=== PATIENT | female | born 2000 | race African-American/Black ===

== ENCOUNTER 2024-07-24 11:33 | Emergency (ER) | payer OTHER, MEDICAID, SELFPAY ==
--- NOTE | ~2024-07-24 | US_ITS ---
EXAMINATION: US ABDOMEN LIMITED CLINICAL INFORMATION: Right upper quadrant abdominal pain. COMPARISON: None available. TECHNIQUE: Real-time imaging of the right upper quadrant abdominal viscera using grayscale and color Doppler technique. FINDINGS: PANCREAS: No peripancreatic fluid collections. LIVER: Liver demonstrates normal morphology and echotexture. No solid or cystic lesion. Liver doesn't have documented measurements by the pulmonary function technologist. No intrahepatic biliary ductal dilatation. GALLBLADDER: Fluid-filled. No pericholecystic fluid collection or gallbladder wall thickening. COMMON BILE DUCT: 3 mm. RIGHT KIDNEY: Normal morphology and echotexture. No solid or cystic lesion. No hydronephrosis. Normal flow on color Doppler interrogation of the renal hilum. Right kidney measures 9 cm. FREE FLUID: None. US/US abdomen limited IMPRESSION: No cholelithiasis. Normal exam. Electronically signed by: Jun Vaz MD 07/24/2024 01:05 PM [facility]
--- NOTE | 2024-07-24 11:35 | ED.ABDPAIN ---
HPI - Abdominal Pain General Chief Complaint: Abdominal Pain Stated Complaint: RUQ pain, sent from Time Seen by Provider: 07/24/24 12:40 Source: patient Mode of arrival: ambulatory Limitations: no limitations History of Present Illness ED Provider: Veronica Gibbons NP HPI narrative: Patient is a 24-year-old female presents emergency department for evaluation of right upper abdominal pain with onset 5 days ago. Pain has been constant in nature. Exacerbates with coughing and movement. Has associated nausea but no vomiting and is able to tolerate oral intake including Bautista's this afternoon without exacerbation of pain or vomiting. Has not tried any OTC analgesics for this pain. Does admit that about 1.5 weeks ago she was sick with a cold symptoms have resolved but she continues to have a mild lingering nonproductive cough. She admits to having infrequent episodes of diarrhea but states ?I think I have IBS?. No recent episodes of diarrhea over the past few days. Denies concern for constipation. Denies fevers, chills, chest pain, vomiting, hematemesis, diarrhea, constipation, hematochezia, melena, dysuria, frequency, urinary urgency, hesitancy, hematuria, denies pelvic pain or abnormal vaginal discharge. Denies concern for sexually transmitted infection. Denies concern for , LMP 07/16/2024. Related Data Allergies Allergy/AdvReac Type Severity Reaction Status Date / Time No Known Allergies Allergy Verified 07/24/24 11:40 Review of Systems Review of Systems Yes all other systems are reviewed and are negative PMFSH Past Medical History Attestation statement: The following information was validated with the patient. Source: old records reviewed Physical Exam ED Vital Signs: Vital Signs - 24 hr 07/24/24 11:36 Temperature 97.7 F Pulse Rate 60 Respiratory Rate 16 Blood Pressure 122/71 Pulse Oximetry 98 Oxygen Delivery Method Room Air BMI result Body Mass Index 18.7 Appearance: Alert.?Oriented to person, place and time. No acute distress.?Normal affect.?? Neck: Normal inspection.? Neck supple.?? CVS: Heart sounds normal. Normal heart rate and rhythm.? Pulses normal.?? Respiratory: No respiratory distress.? Lung sounds clear to auscultation bilaterally?? Chest: Has tenderness upon palpation of the right lower lateral chest wall Abdomen: Soft and non-tender. No rebound tenderness at McBurney's point. Negative psoas sign. Negative Rovsing sign. Negative Rosas sign. No CVAT. Normoactive bowel sounds. No pulsatile mass.?? Skin: Skin warm and dry.? Normal skin color.? Extremities: No lower extremity edema.? Neuro: Moves all extremities spontaneously. Sensation intact bilaterally. Ambulates with normal steady gait. Course Course Course Narrative: This is an RME done by DEVON Lawrence: Additional HPI, ROS, PE not included below will be deferred to primary provider. 24 year old female presents w/ RUQ pain 7/10, nausea, diarrhea X 5 days worsening. Pain worse with coughing, laughing, stretching. Unable to identify what makes pain worse. No fevers, chills, cp, sob, vomiting. Sent here by urgent care . Holding [employer] bag in hand ready to eat while in triage. PE RUQ tenderness mild US, labs ordered. Medical Decision Making Medical Decision Making MDM Narrative: Patient is a 24 old female with no reported past medical history presenting to emergency department for evaluation right upper quadrant abdominal pain as per HPI. Abdominal examination is benign tenderness upon palpation is rather the right lateral lower chest wall provoking concern for likely costochondritis in the setting of recent upper respiratory infection, overall without signs of systemic toxicity found to be afebrile without tachycardia, no hypotension. No associated chest pain shortness of breath, has had a recent URI with a mild lingering cough nonproductive, lung sounds are clear to the apices bilaterally, unlikely pneumonia, would defer CXR. no clinical evidence of DVT or personal history of VTE/malignancy to suggest pulmonary embolism, PERC negative. No high-risk past medical history to suggest myocardial infarction and is without chest pain, less likely AAA, aortic dissection. No abdominal tenderness upon palpation, negative Rosas sign, unlikely acute cholecystitis, choledocholithiasis, no fever or jaundice to suggest acute cholangitis, may possibly be biliary colic secondary to cholelithiasis. Denies associated acid reflux, no tenderness upon palpation over the epigastrium or left upper quadrant to suggest gastritis, no recent hematemesis history less likely to suggest PUD. Denies excessive alcohol consumption, history of diabetes, lower suspicion acute pancreatitis. No rebound tenderness at McBurney's point, rigidity, guarding to suggest acute appendicitis. No tenderness of the left lower quadrant nor associated nausea, vomiting, diarrhea patient, hematochezia or melena to suggest diverticulitis or GI bleed. No appreciable hernia to suggest strangulation/incarceration. Lower suspicion for bowel obstruction. No distention or rigidity to suggest GI perforation. hCG is negative, unlikely ectopic , lower clinical suspicion for TOA/torsion. Differential Diagnosis Differential Diagnoses: The differential diagnosis associated with the presentation includes (See narrative above) Admission/Observation Consideration of admission/observation: Escalation of care including admission/observation considered (See narrative above ) Lab Data MDM Lab Attestation statement: I reviewed the patient's lab results. CBC without leukocytosis/left shift, anemia or thrombocytopenia. No electrolyte derangement. No DULCE MARIA. LFTs and lipase are within normal range. Urinalysis without evidence of infection. 07/24/24 11:48 07/24/24 11:48 Labs: Lab Results 07/24/24 Range/Units 11:48 WBC 4.6 L (4.8-10.8) X10*3/uL RBC 4.65 (4.20-5.50) X10*6/uL Hgb 12.8 (12.0-16.0) g/dl Hct 40.1 (37.0-47.0) % MCV 86.2 (80.0-98.0) fL MCH 27.5 (27.0-33.0) pg MCHC 31.9 (31.0-35.0) g/dl RDW 13.5 (11.0-16.0) % Plt Count 300 (160-400) X10*3/uL MPV 9.2 L (9.4-12.3) fL Immature Gran % (Auto) 0.2 (0.0-0.4) % Neut % (Auto) 51.6 (45-73) % Lymph % (Auto) 37.3 (20-40) % [place] % (Auto) 9.9 (2-11) % Eos % (Auto) 0.4 (0-4) % Baso % (Auto) 0.6 (0-2) % Lymph # (Auto) 1.7 (1.2-4.9) X10*3/uL [place] # (Auto) 0.5 (0.1-1.2) X10*3/uL Eos # (Auto) 0.0 (0.0-0.4) X10*3/uL Baso # (Auto) 0.0 (0.0-0.2) X10*3/uL Abs Immat Gran (auto) 0.01 (0.00-0.03) X10*3/uL Absolute Neuts (auto) 2.4 (2.0-8.3) x10*3/uL Absolute Nucleated RBC 0.000 (0.0-0.012) X10*3/uL Nucleated RBC % (auto) 0.0 (0.0-0.2) /100WBC Sodium 137 (135-145) mmol/L Potassium 4.0 (3.3-5.1) mmol/L Chloride 103 (96-108) mmol/L Carbon Dioxide 28 (22-29) mmol/L Anion Gap 10 L (12-20) BUN 7 L (9-16) mg/dL Creatinine 0.85 (0.5-1.4) mg/dL Estim Creat Clear Calc 80.8 Estimated GFR > 60 Random Glucose 100 (60-115) mg/dL Calcium 9.2 (8.4-10.2) mg/dL Magnesium 1.9 (1.6-2.6) mg/dL Total Bilirubin 0.5 (0.0-1.0) mg/dL AST 24 (5-31) U/L ALT 15 (0-31) U/L Alkaline Phosphatase 65 (39-117) U/L Total Protein 8.4 H (6.5-8.0) g/dL Albumin 4.4 (3.5-5.0) g/dL Lipase 18 (8-78) U/L Urine Color Yellow Urine Appearance Clear Urine pH 5.5 (5.0-9.0) Ur Specific [place] <= 1.005 (1.005-1.025) Urine Protein Negative (Neg-Trace) mg/dL Urine Glucose (UA) Negative (Negative) mg/dL Urine Ketones Negative (Negative) mg/dL Urine Blood Negative (Negative) Urine Nitrite Negative (Negative) Ur Leukocyte Esterase Negative (Negative) Independent Interpretation I performed an independent interpretation of an: Ultrasound Radiology Impression Discussion of test interpretation with radiology: I have reviewed the radiologist's reading. Radiologist Impression: US/US abdomen limited IMPRESSION: No cholelithiasis. Normal exam. Discharge Plan Discharge Clinical Impression: Acute costochondritis Patient Disposition: Home, Self-Care Instructions: Costochondritis (ED) Additional Instructions: Your blood work today was very reassuring. Your ultrasound does not show any abnormality to suggest a cause for your pain. You can take ibuprofen 200 mg, 3 tablets (600mg) every 6-8 hours as needed for pain, in addition to Tylenol 500 mg, 2 tablets (1,000mg) every 4-6 hours as needed for pain, but not to exceed 3 doses daily (3,000mg).? Follow-up with your primary care doctor. Return to emergency department any new or worsening symptoms or concerns. Referrals: Physician,Unknown J [Primary Care Provider] - Print Language: Italian
[2024-07-24 11:36] VITALS: BP 122/71; PULSE 60; RESP 16; TEMP 36.5; O2SAT 98; BMI 18.7
[2024-07-24 11:55] LABS: Appearance Urine Clear; Color Urine Yellow; Glucose Urine UA Negative (Negative); Leukocyte Esterase Urine Negative (Negative); Nitrite Urine Negative (Negative); PH 5.5 (5.0-9.0); Specific Gravity - Urine <= 1.005 (1.005-1.025); Urine Blood Negative (Negative); Urine Ketones Negative (Negative); Urine Protein Negative (Neg-Trace)
[2024-07-24 11:56] LABS: Basophils Percent Auto 0.6 % (0-2); Eosinophils Percent Auto 0.4 % (0-4); Hematocrit 40.1 % (37.0-47.0); Hemoglobin 12.8 g/dl (12.0-16.0); Imm Gran Abs Auto 0.01 X10*3/uL (0.00-0.03); Imm Gran Pct Auto 0.2 % (0.0-0.4); Lymphocytes Absolute Auto 1.7 X10*3/uL (1.2-4.9); Lymphocytes Percent Auto 37.3 % (20-40); MANUAL DIFF FLAG NO; Mean Corpuscular HGB Conc 31.9 g/dl (31.0-35.0); Mean Corpuscular Hemoglobin 27.5 pg (27.0-33.0); Mean Corpuscular Volume 86.2 fL (80.0-98.0); Mean Platelet Volume 9.2 fL (9.4-12.3); Monocytes Absolute Auto 0.5 X10*3/uL (0.1-1.2); Monocytes Percent Auto 9.9 % (2-11); Neutrophils Absolute Auto 2.4 x10*3/uL (2.0-8.3); Neutrophils Percent Auto 51.6 % (45-73); Platelet Count 300 X10*3/uL (160-400); Red Blood Count 4.65 X10*6/uL (4.20-5.50); Red Cell Distribution Width 13.5 % (11.0-16.0); White Blood Count 4.6 X10*3/uL (4.8-10.8)
[2024-07-24 12:07] LABS: Alanine Aminotransferase 15 U/L (0-31); Albumin Level 4.4 g/dL (3.5-5.0); Alkaline Phosphatase 65 U/L (39-117); Anion Gap 10 (12-20); Aspartate Amino Transferase 24 U/L (5-31); Bilirubin Total 0.5 mg/dL (0.0-1.0); Blood Urea Nitrogen 7 mg/dL (9-16); Calcium 9.2 mg/dL (8.4-10.2); Carbon Dioxide 28 mmol/L (22-29); Chloride 103 mmol/L (96-108); Creatinine Clr Calc Pharmacy 80.8; Estimated Glomerular Filt Rate > 60; Glucose Random 100 mg/dL (60-115); Lipase 18 U/L (8-78); Magnesium 1.9 mg/dL (1.6-2.6); Sodium 137 mmol/L (135-145); Total Protein 8.4 g/dL (6.5-8.0)
[2024-07-24 13:25] LABS: HCG Quantitative < 2 mIU/mL
[2024-07-24 13:54] VITALS: BP 137/87; PULSE 82; RESP 16; TEMP 36.6; O2SAT 100
[2024-07-24] MEDS: Ibuprofen 600 MG TABLET PO (13:55)
[2024-07-24 14:02] VITALS: BP 137/87; PULSE 82; RESP 16; TEMP 36.6; O2SAT 100
== END 2024-07-24 14:05 | disposition home or self-care (01) ==
PROVIDERS: Nurse Practitioner Family; Physician Assistant; Emergency Provider Emergency Medicine
DX: M94.0 Chondrocostal junction syndrome [Tietze] (principal); R10.11 Right upper quadrant pain; R05.9 Cough, unspecified
CPT/HCPCS: 36415; 76705; 80053; 81003; 83690; 83735; 84702; 85025; 96372; 99283; 99284

== ENCOUNTER → 2024-07-24 11:34 | Outpatient (BNV) | payer OTHER, SELFPAY | PROVIDERS: Emergency Provider Emergency Medicine; Visit Provider Radiology Diagnostic Radiology | DX: R10.11 Right upper quadrant pain (principal) | CPT/HCPCS: 76705 ==

== ENCOUNTER 2024-12-15 09:54 | Emergency (ER) | payer OTHER, MEDICAID, SELFPAY ==
--- NOTE | ~2024-12-15 | XR_ITS ---
EXAMINATION: XR CHEST 2 VIEWS HISTORY: +PPD, rule out active TB COMPARISON: There are no prior studies for comparison. FINDINGS: PA and lateral views of the chest are submitted. There are opacities at the left lung apex which may represent artifacts related to the patient's hair. The remainder of the lungs are clear. There is no pleural effusion, pneumothorax, or pulmonary vascular congestion. The heart is normal in size. The bones are intact. XR/XR chest 2V IMPRESSION: Left apical opacities which may represent artifact from the patient's hair. Clinical correlation is recommended. The film could be repeated with removal of any artifacts. Electronically signed by: Allan Malone MD 12/15/2024 10:42 AM EDT
--- NOTE | ~2024-12-15 | CT_ITS ---
EXAMINATION: CT ANGIOGRAM CHEST CLINICAL INFORMATION: Hemoptysis. Possible TB exposure. COMPARISON: None available. TECHNIQUE: Multiple axial images were obtained through the chest after the administration of 65 mL of Omnipaque 350 intravenous contrast. Extensive vascular post-processing including two-dimensional and three-dimensional reformatted images were created and reviewed on an independent workstation. SmartPrep technique This CT examination was performed using dose optimization techniques as appropriate, variously including the following: *Automated exposure control *Adjustment of mA and/or kV according to patient size (this includes techniques or standardized protocols for targeted exams where dose is matched to indication/reason for exam; i.e. extremities or head) *Use of iterative reconstruction technique. DLP: 170 mg centimeter. FINDINGS: Normal patency without intraluminal filling defects within the main pulmonary artery or its main branches and largest subsegmental pulmonary branches. No aneurysm or dissection, thoracic aorta. No gross consolidation, pleural effusion or pneumothorax. No bronchiectasis. No honeycombing. No gross pulmonary nodules. Respiratory airways is patent. No lymphadenopathy, mediastinum or pulmonary senthil. No pericardial effusion. No axillary lymphadenopathy. No gross dominant nodules in the included thyroid gland.. CT/CT angio chest PE protocol IMPRESSION: No acute pulmonary artery emboli. No acute airspace disease. Fleischner guidelines were followed. Electronically signed by: Jun Vaz MD 12/15/2024 02:09 PM EDT
[2024-12-15 09:57] VITALS: BP 125/83; PULSE 71; RESP 16; TEMP 36.8; O2SAT 100; BMI 18.7
--- NOTE | 2024-12-15 10:14 | PC.NURSE ---
Pt to ED bed. Strong steady gait. UnlaBORED RESP. Skin warm and dry. masked. Awaits CXR
[2024-12-15 12:17] LABS: MANUAL DIFF FLAG NO
[2024-12-15 12:27] LABS: Basophils Percent Auto 0.4 % (0-2); Eosinophils Percent Auto 0.4 % (0-4); Hematocrit 37.5 % (37.0-47.0); Hemoglobin 11.8 g/dl (12.0-16.0); Imm Gran Abs Auto 0.02 X10*3/uL (0.00-0.03); Imm Gran Pct Auto 0.3 % (0.0-0.4); Lymphocytes Absolute Auto 1.8 X10*3/uL (1.2-4.9); Lymphocytes Percent Auto 25.9 % (20-40); Mean Corpuscular HGB Conc 31.5 g/dl (31.0-35.0); Mean Corpuscular Hemoglobin 26.9 pg (27.0-33.0); Mean Corpuscular Volume 85.6 fL (80.0-98.0); Mean Platelet Volume 9.6 fL (9.4-12.3); Monocytes Absolute Auto 0.5 X10*3/uL (0.1-1.2); Monocytes Percent Auto 7.6 % (2-11); Neutrophils Absolute Auto 4.5 x10*3/uL (2.0-8.3); Neutrophils Percent Auto 65.4 % (45-73); Platelet Count 317 X10*3/uL (160-400); Red Blood Count 4.38 X10*6/uL (4.20-5.50); Red Cell Distribution Width 13.4 % (11.0-16.0); White Blood Count 6.9 X10*3/uL (4.8-10.8)
--- NOTE | 2024-12-15 12:31 | ED.RECABL ---
HPI - Recheck/Abnormal Lab/Rx General Chief Complaint: Recheck/Abnormal Lab/Rx Stated Complaint: Sent for TB test? Time Seen by Provider: 12/15/24 11:33 Source: patient Mode of arrival: ambulatory Limitations: no limitations History of Present Illness ED Provider: ELISE CHAUHAN narrative: 24 yo female no PMH who has a hx of travel to [facility] but notes she was born in [place] and all of her childhood vaccines were in [place]. Her mom travels back and forth to [place] still but the patient has not been there since she was 12 yo. She started [employer] and in March she had a PPD placed that was positive. This has not happened to her before. She has had cough, night sweats and scant blood in mucous mostly when she is sick but this has been 6+ months. She never told staff she had these symptoms. No time in shelters or shelter. She notes the PPD site was small and on Saturday it grew again - she called her sister and her sister states she has the same reaction though not this delayed. The site is itchy now. Patient moved to Room 1 for appropriate precautions. MD complaint: abnormal lab Initial visit (ago): week(s) (March) Initial visit for: other Description of abnormal result: abnormal PPD Symptoms since prior visit: no new symptoms Associated symptoms: other (night sweats, cough, intermittent hemoptysis) Related Data Allergies Allergy/AdvReac Type Severity Reaction Status Date / Time No Known Allergies Allergy Verified 12/15/24 10:04 Review of Systems Review of Systems: Constitutional : No Fever, No Chills, pos night sweats ENT/Mouth : No Hoarseness, No sore throat, No Rhinorrhea Eyes: No Redness, No Discharge, No Vision Changes Cardiovascular : No Chest Pain, no SOB, no Dyspnea on Exertion, No Edema Respiratory : positive Cough, No Sputum, positive Wheezing, Gastrointestinal : No Nausea, No Vomiting, No Diarrhea, No abdominal Pain Genitourinary : No Dysuria, No Hematuria Musculoskeletal : No joint pain, No Myalgias Skin : No rash Neuro : No Weakness, No Numbness, No Headache Psych : No anxiety, depression All other systems reviewed and are negative PMFSH Past Medical History Attestation statement: The following information was validated with the patient. Source: old records reviewed Medical History No pertinent past medical history Social History Social History (Updated 12/15/24 @ 12:59 by Kanika Mejia DO) Patient Tobacco Use Status: Former Tobacco user Advance Directives: No Advance Directives Information Provided: Yes Physical Exam Vital Signs: Vital Signs: Last Vital Signs Temp 98.3 F 12/15/24 09:57 Pulse 71 12/15/24 09:57 Resp 16 12/15/24 09:57 BP 125/83 12/15/24 09:57 Pulse Ox 100 12/15/24 09:57 O2 Del Method Room Air 12/15/24 09:57 BMI result Body Mass Index 18.7 Appearance: Alert. Oriented X3. No acute distress. Eyes: Pupils equal, round and reactive to light. ENT: Pharynx normal. Neck: Normal inspection. Neck supple. CVS: Normal heart rate and rhythm. Pulses normal. Respiratory: No respiratory distress. Breath sounds normal. Abdomen: Soft and nontender. Skin: Skin warm and dry. Normal skin color. Normal skin turgor. Extremities: No lower extremity edema. No calf ttp Neuro: Oriented X 3. No motor deficit. No sensory deficit. CN2-12 intact Medications Administered Discontinued Medications Generic Name Dose Route Start Last Admin Trade Name Freq PRN Reason Stop Dose Admin Iohexol 100 ml 12/15/24 13:48 12/15/24 13:49 Iohexol 350 Mg/Ml 100 Ml Infus..Btl IV 12/15/24 13:49 65 ml ONCE ONE Administration Medical Decision Making Medical Decision Making MDM Narrative: 24 yo female with +PPD and some risk factors with concerning symptoms she also reports recent URI at this time she will need labs, tspot and CTA given the hemoptysis. Not labored. Will discuss with I+D as well. Differential Diagnosis Differential Diagnoses: The differential diagnosis associated with the presentation includes bronchitis, VTE, mass, viral syndrome, TB Admission/Observation Consideration of admission/observation: Escalation of care including admission/observation considered not toxic can be managed as outpatient Consult Healthcare Provider Management of the patient was discussed with: Orthopedic Shoe Fitter (refer to TB clinic at [facility] per ID) Lab Data [facility] Lab Attestation statement: I reviewed the patient's lab results. 12/15/24 12:12 12/15/24 12:12 Labs: Lab Results 12/15/24 Range/Units 12:12 WBC 6.9 (4.8-10.8) X10*3/uL RBC 4.38 (4.20-5.50) X10*6/uL Hgb 11.8 L (12.0-16.0) g/dl Hct 37.5 (37.0-47.0) % MCV 85.6 (80.0-98.0) fL MCH 26.9 L (27.0-33.0) pg MCHC 31.5 (31.0-35.0) g/dl RDW 13.4 (11.0-16.0) % Plt Count 317 (160-400) X10*3/uL MPV 9.6 (9.4-12.3) fL Immature Gran % (Auto) 0.3 (0.0-0.4) % Neut % (Auto) 65.4 (45-73) % Lymph % (Auto) 25.9 (20-40) % [place] % (Auto) 7.6 (2-11) % Eos % (Auto) 0.4 (0-4) % Baso % (Auto) 0.4 (0-2) % Lymph # (Auto) 1.8 (1.2-4.9) X10*3/uL [place] # (Auto) 0.5 (0.1-1.2) X10*3/uL Eos # (Auto) 0.0 (0.0-0.4) X10*3/uL Baso # (Auto) 0.0 (0.0-0.2) X10*3/uL Abs Immat Gran (auto) 0.02 (0.00-0.03) X10*3/uL Absolute Neuts (auto) 4.5 (2.0-8.3) x10*3/uL Absolute Nucleated RBC 0.000 (0.0-0.012) X10*3/uL Nucleated RBC % (auto) 0.0 (0.0-0.2) /100WBC Sodium 139 (135-145) mmol/L Potassium 4.3 (3.3-5.1) mmol/L Chloride 108 (96-108) mmol/L Carbon Dioxide 27 (22-29) mmol/L Anion Gap 8 L (12-20) BUN 7 L (9-16) mg/dL Creatinine 0.68 (0.5-1.4) mg/dL Estim Creat Clear Calc 102.7 Estimated GFR > 60 Random Glucose 93 (60-115) mg/dL Calcium 9.0 (8.4-10.2) mg/dL Magnesium 1.9 (1.6-2.6) mg/dL Total Bilirubin 0.4 (0.0-1.0) mg/dL Direct Bilirubin 0.1 (0.0-0.5) mg/dL AST 29 (5-31) U/L ALT 18 (0-31) U/L Alkaline Phosphatase 58 (39-117) U/L Total Protein 7.5 (6.5-8.0) g/dL Albumin 4.0 (3.5-5.0) g/dL Beta HCG, Quant < 2 mIU/mL Influenza Type A (PCR) NEGATIVE (Negative) Influenza Type B (PCR) NEGATIVE (Negative) RSV RNA Qual (PCR) NEGATIVE (Negative) SARS-CoV-2 RNA (RT-PCR) POSITIVE A (Negative) Independent Interpretation I performed an independent interpretation of an: CT Scan (normal ) Radiology Impression Discussion of test interpretation with radiology: I have reviewed the radiologist's reading. Discharge Plan Discharge Clinical Impression: Positive PPD, COVID-19 Patient Disposition: Home, Self-Care Instructions: Tuberculosis (DC), COVID-19 (Coronavirus Disease 2019) (ED) Additional Instructions: CT scan normal no blood clots, lung pathology normal labs reassuring you are positive for COVID 19 wear a mask and quarantine wash hands wear a mask until you are seen and cleared by [facility] call to schedule appointment [phone] [facility] return for any worsening symptoms or concerns. your T spot test is pending Print Language: [place]
[2024-12-15 12:47] LABS: Alanine Aminotransferase 18 U/L (0-31); Alkaline Phosphatase 58 U/L (39-117); Anion Gap 8 (12-20); Aspartate Amino Transferase 29 U/L (5-31); Bilirubin Direct 0.1 mg/dL (0.0-0.5); Bilirubin Total 0.4 mg/dL (0.0-1.0); Blood Urea Nitrogen 7 mg/dL (9-16); Carbon Dioxide 27 mmol/L (22-29); Chloride 108 mmol/L (96-108); Creatinine Clr Calc Pharmacy 102.7; Estimated Glomerular Filt Rate > 60; Glucose Random 93 mg/dL (60-115); HCG Quantitative < 2 mIU/mL; Magnesium 1.9 mg/dL (1.6-2.6); Potassium 4.3 mmol/L (3.3-5.1); Sodium 139 mmol/L (135-145); Total Protein 7.5 g/dL (6.5-8.0)
[2024-12-15 13:00] LABS: Influenza A PCR NEGATIVE (Negative); Influenza B PCR NEGATIVE (Negative); Resp Syncy Virus RNA Qual PCR NEGATIVE (Negative); SARS COV2 PCR INHOUSE POSITIVE (Negative)
[2024-12-15] MEDS: iohexoL 350 MG/ML 100 ML INFUS..BTL IV (13:49)
[2024-12-15 15:01] VITALS: BP 122/79; PULSE 68; RESP 16; TEMP 36.8; O2SAT 100
[2024-12-18 17:43] LABS: TS Negative Control Passed; TS Panel A 0; TS Panel B 0; TS Positive Control Passed; TSpotTB Negative (Negative)
== END 2024-12-15 15:03 | disposition home or self-care (01) ==
PROVIDERS: Emergency Provider Emergency Medicine
DX: U07.1 COVID-19 (principal); R76.11 Nonspecific reaction to tuberculin skin test without active tuberculosis
CPT/HCPCS: 0241U; 36415; 71046; 71275; 80048; 80076; 83735; 84702; 85025; 86481; 99282; 99284; Q9967

== ENCOUNTER → 2024-12-15 10:05 | Outpatient (BNV) | payer OTHER, MEDICAID, SELFPAY | PROVIDERS: Visit Provider Radiology Diagnostic Radiology | DX: R04.2 Hemoptysis (principal); R91.8 Other nonspecific abnormal finding of lung field | CPT/HCPCS: 71046; 71275 ==

== ENCOUNTER 2024-12-16 14:05 | Emergency (ER) | payer OTHER, MEDICAID, SELFPAY ==
--- NOTE | ~2024-12-16 | XR_ITS ---
EXAMINATION: XR HAND, RIGHT CLINICAL INFORMATION: pain, thumb COMPARISON: None available. TECHNIQUE: PA, lateral, and oblique views of the right hand. FINDINGS: The metacarpals are intact. The phalanges are intact with normal alignment. The carpal bones are intact with normal alignment. Distal radius and ulna are intact. No lytic or blastic lesions. No subcutaneous emphysema. No metallic or radiopaque foreign body. XR/XR hand RT min 3V IMPRESSION: No acute fracture or dislocation. Electronically signed by: Jun Vaz MD 12/16/2024 02:44 PM EDT
[2024-12-16 14:09] VITALS: BP 126/71; PULSE 82; RESP 14; TEMP 36.8; O2SAT 98; BMI 18.7
--- NOTE | 2024-12-16 14:20 | ED.EXTPRO ---
HPI - Extremity Problem General Chief complaint: Extremity Injury, Upper Stated complaint: Thumb Injury- Not Moving, Swelling Time Seen by Provider: 12/16/24 17:20 Source: patient and RN notes reviewed Mode of arrival: ambulatory Limitations: no limitations History of Present Illness ED Provider: Susanna Rogers PA-C HPI Narrative: this is a 24-year-old female who presents emergency department with complaints of right thumb pain. Patient states that this afternoon [place] the rec [place] her thumb bent backwards. patient reports pain with movement, states that she was unable to fully move her thumb secondary to pain. She is right-hand dominant. Denies previous injury to this path. Denies any numbness or tingling. No other complaints or concerns at this time. MD Complaint: extremity pain Onset (ago): day(s) Pain Consistency: constant Quality: aching Radiation: none Relieving factors: nothing Exacerbating factors: nothing Associated symptoms: denies other symptoms Related Data Previous Rx's ?Medication ?Instructions ?Recorded acetaminophen 500 mg tablet 500 mg PO Q6H PRN pain #30 tabs 12/16/24 (Tylenol Extra Strength) ibuprofen 600 mg tablet 600 mg PO Q6H PRN pain #30 tabs 12/16/24 Allergies Allergy/AdvReac Type Severity Reaction Status Date / Time No Known Allergies Allergy Verified 12/16/24 14:12 Review of Systems Review of Systems: Yes all other systems are reviewed and are negative [facility] Past Medical History Attestation statement: The following information was validated with the patient. Medical History No pertinent past medical history Social History Social History Patient Tobacco Use Status: Former Tobacco user Advance Directives: No Advance Directives Information Provided: Yes Physical Exam Vital Signs: Vital Signs: Last Vital Signs Temp 98.3 F 12/16/24 17:42 Pulse 82 12/16/24 17:42 Resp 14 12/16/24 17:42 BP 126/71 12/16/24 17:42 Pulse Ox 98 12/16/24 17:42 O2 Del Method Room Air 12/16/24 17:42 BMI result Body Mass Index 18.7 Const: Other: General: Awake, alert, and oriented X3. No acute distress. HEENT: Normal inspection CVS: Normal heart rate and rhythm. Pulses normal. Respiratory: No respiratory distress Skin: Warm, dry, no rashes noted to exposed skin. Normal skin color. Normal skin turgor. Extremities: Right thumb, with no obvious bony deformity or swelling. Limited range of motion secondary to pain. Strong radial pulse. No open wounds or ecchymosis. No edema. No erythema. Neuro: Oriented X 3. No motor deficit. No sensory deficit. Course Course Course Narrative: This is an RME: Additional HPI, ROS, PE not included below will be deferred to primary provider. RME assessment and note performed by: Susanna Chavira PA-C This is a 24-year-old female who presents emergency department with complaints of right thumb pain. Patient states that she was at the rec center and hit her right thumb on bleachers and her thumb bent backwards. She was strong radial pulse. Pain to the entire hand however more pain overlying the right thumb. Decreased range of motion. Plan: X-ray Reevaluation(s) Reevaluation #1: x-rays reviewed, no bony abnormality seen. Thumb re-examined, range of motion is full and intact however does appreciate pain with this. Given workup, we will place in thumb spica velcro splint, and given orthopedic referral for follow-up. Given strict return precautions. She understands and agrees with plan. Patient stable for discharge. Medical Decision Making Medical Decision Making MDM Narrative: This is a 24-year-old female who presents emergency department complaints of right thumb pain status post injury. On arrival, vital signs within normal limits. she is speaking in full sentences under no acute distress. Right thumb with no obvious bony deformity or swelling. Tenderness throughout thumb with limited ROM. Strong radial pulse. No open wounds. Will obtain x-ray to rule out any bony abnormalities. Differential diagnoses include fracture, contusion, sprain, strain. Differential Diagnosis Differential Diagnoses: The differential diagnosis associated with the presentation includes see above Radiology Impression Discussion of test interpretation with radiology: I have reviewed the radiologist's reading. Radiologist Impression: EXAMINATION: XR HAND, RIGHT CLINICAL INFORMATION: pain, thumb COMPARISON: None available. TECHNIQUE: PA, lateral, and oblique views of the right hand. FINDINGS: The metacarpals are intact. The phalanges are intact with normal alignment. The carpal bones are intact with normal alignment. Distal radius and ulna are intact. No lytic or blastic lesions. No subcutaneous emphysema. No metallic or radiopaque foreign body. XR/XR hand RT min 3V IMPRESSION: No acute fracture or dislocation. Electronically signed by: Jun Vaz MD 12/16/2024 02:44 PM EDT RP Dictated By: Jun Dubon MD Procedures Orthopedic Splinting/Casting Injury #1: Side: right Upper Extremity Injury Location: hand and finger Upper Extremity Immobilizer: thumb spica Discharge Plan Discharge Clinical Impression: Sprain of right thumb Patient Disposition: Home, Self-Care Instructions: Sprain (ED), Finger Sprain (ED) Additional Instructions: You were seen in the emergency department due to right thumb pain. Your x-rays do not show any broken bones or dislocation. You may have strained the ligaments in your thumb. Please wear splint until you follow-up with the orthopedics. Alternate between ibuprofen and Tylenol as needed for pain and symptoms. Follow-up with the orthopedic team. Call tomorrow to make an appointment. If any new or worsening symptoms occur including but not limited to worsening pain, significant swelling, please seek emergent care. Prescriptions: New ibuprofen 600 mg tablet 600 mg PO Q6H PRN (Reason: pain) Qty: 30 0RF acetaminophen [Tylenol Extra Strength] 500 mg tablet 500 mg PO Q6H PRN (Reason: pain) Qty: 30 0RF Interventions: ED Discharge Assessment Last Done: 12/16/24 17:42 Discharge Date/Time: 12/16/24 17:42 Print Language: Burmese
[2024-12-16 17:42] VITALS: BP 126/71; PULSE 82; RESP 14; TEMP 36.8; O2SAT 98
--- OUTSIDE RECORDS SUMMARY | 2024-12-16 18:13 | XMS_ITS | Clinical Summary ---
Author Organization [facility] Address [address] [place] [id number] Phone Care Team Providers Care Websphere Administrator Name Role Phone HaileyCintia Massiel Primary Care Provider Allergies No known active allergies Medications clindamycin (FOR:CLINDAGEL) 1 % gelIndications: Acne vulgaris Apply to face qhs 30 g 4 12/06/2016 Active benzoyl peroxide (FOR:BENZAGEL) 5 % gelIndications: Acne vulgaris Apply to face qhs 45 g 5 12/06/2016 Active ketoconazole (FOR:NIZORAL) 2 % creamIndication s:Tinea pedis of right foot Apply to ft area bid until rash resolves 60 g 3 01/08/2017 Active Active Problems Problem Noted Date Diagnosed Date Unequal leg length 05/17/2017 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 01/18/2017 Strain of right subscapularis muscle 01/18/2017 Pes planus of both feet 01/18/2017 Chronic midline low back pain without sciatica 0 01/18/2017 Migraine without aura and wi thout status migrainosus, not intractable 12/06/2016 Chronic headache 11/27/2016 Chronic right shoulder pain 11/27/2016 Bilateral knee pain- more left - right now resol raul 11/27/2016 Irregular menses 11/27/2016 Tinea pedis 11/27/2016 Acne vulgaris 11/27/2016 Resolved Problems Problem Noted Date Diagnosed Date Resolved Date Right ankle pain- hx of sprain 11/27/2016 01/08/2017 Immunizations Name Administration Dates Next Due DTaP (TRIPEDIA, INFANRIX) 11/02/2003,,2000,10/01,2000 Fluzone-split Influenza-split 11/15/2010 H1N1 Nasal 09/28/2009,07/07/2009 HPV Quadrivalent (Gardasil, HPV4) 01/05/2010,,06/02/2009 Hep A, Ped/Adol (HAVRIX, VAQTA) IM 05/31/2008, Hep B / HiB (COMVAX) 2000 Hep B, Pediatric/Adolescent I.M. 010,10/26/2006,2000,09/17 HiB, Unspecified 11/02/2001, 1,2000,05/05 INFLUENZA IIV3 (AFLURIA 3YRS +, FLUARIX/FLULAVAL/FLUZONE 6 MO+), IM, SINGLE-DOSE 08/27/2016,11/10/2015 INFLUENZA LAIV3 (FLUMIST) tr ivalent, live, nasal, PF, 2-49y/o 08/02/2014,07/16/2012,06/02/2009,10/28,08/27/2008 IPV (IPOL) 06/17/2007 MENVEO MCV4O Meningococcal (ACWY) 08/27/2016, MMR II 11/09/2005,11/09/2001 MMRV (PROQUAD) 06/17/2007 Meningococcal Conjugate (ACWY) 10/23/2012 OPV, Given before 12/16/2015 ( Presumed Trivalent) 11/02/2003,11/02/2001,2000,06/13 TDaP (ADACEL, BOOSTRIX) 06/24/2012 Td Adult 06/17/2007 Varicella (VARIVAX) SQ 11/26/2004 influenza IIV3 (AFLURIA, FLU ZONE), IM, trivalent, with preservative, Multi-Dose, 0.25ml 6-35MO, 0.5ml 36MO+ 08/17/2013 Family History Medical History Relation Comments Diabetes Father Hypertension Mother hx of DM - resol raul Ulcers Mother Sickle cell trait Sister Relation Status Comments Father Maternal Grandfather (Age 66) pneumonia Mother Sister Social History Tobacco Use Types Packs/Day Years Used Date Smoking Tobacco: Never Smokeless Tobacco: Never Alcohol Use Standard Drinks/Week Comments No 0 (1 standard drink = 0.6 oz pur e alcohol) Comments No Sex and Gender Information Value Date Recorded Sex Assigned at Female 09/07/2023 10:55 PM EST Legal Sex Female 1:18 AM EST Gender Identity Female 09/07/2023 10:55 PM EST Sexual Orientation Not on file Last Filed Vital Signs Vital Sign Reading Time Taken Comments Blood Pressure 127/67 09/07/2023 10:59 PM EST Pulse 61 09/07/2023 10:59 PM EST Temperature 36.9 ??C (98.5 ??F) 09/07/2023 10:[address] Respiratory Rate 17 09/07/2023 10:59 PM EST Oxygen Saturation 98% 09/07/2023 10:59 PM EST Inhaled Oxygen Concentration - - Weight 50.3 kg (111 lb) 08/07/2017 2:31 PM EST Height 162.6 cm (5' 4 ) 01/08/2017 1:48 PM EDT Body Mass Index - - Plan of Treatment Health Maintenance Due Date Last Done Comments CHLAMYDIA & GONORRHEA SCREENING 2000 HIV SCREENING 2000 HEPATITIS C SCREENING 2018 PAP SMEAR/CYTOLOGY ALONE 2021 TDAP/TD VACCINE 06/24/2022 06/24/2012, 06/17/2007 COVID VACCINE ( season) 2024 ZOSTER (SHINGRIX) VACCINE (1 of 2) 2050 HEPATITIS B VACCINE Completed 09/28/2009, 10/26/2006, 2000, Additional history exists HUMAN PAPILLOMA VIRUS (HPV) VACCINE Completed 01/05/2010, 09/28/2009, 06/02/2009 PNEUMOCOCCAL VACCINE Aged Out No long er eligible based on patient's age to complete this topic Care Teams Websphere Administrator Relationship Specialty Start Date End Date Massiel Juarez DO [address] [place] [address] PCP - General 07/23/16 Additional Source Comments Any HIV related-infromation that has been disclosed to you is from confidential records which are protected by state law. State law prohibits you from making any further disclosure of this HIV-related information without the specific written consent of the person to whom it pertains, or as otherwise permitted by law. Any unauthorized further disclosure in violation of state law may result in a fine or shelter sentence or both. A general authorization for the release of medical or other informationisNOT sufficient authorization for further disclosure.[facility]
== END 2024-12-16 17:42 | disposition home or self-care (01) ==
PROVIDERS: Emergency Provider Emergency Medicine Emergency Medical Services
DX: S63.601A Unspecified sprain of right thumb, initial encounter (principal); M79.641 Pain in right hand; X58.XXXA Exposure to other specified factors, initial encounter; Y93.9 Activity, unspecified; Y92.9 Unspecified place or not applicable; Y99.8 Other external cause status
CPT/HCPCS: 29130; 73130; 99283; 99284

== ENCOUNTER → 2024-12-16 14:21 | Outpatient (BNV) | payer OTHER, MEDICAID, SELFPAY | PROVIDERS: Visit Provider Radiology Diagnostic Radiology | DX: M79.641 Pain in right hand (principal) | CPT/HCPCS: 73130 ==

== ENCOUNTER 2024-12-23 11:27 | Emergency (ER) | payer OTHER, SELFPAY ==
[2024-12-23 11:32] VITALS: BP 116/67; PULSE 80; RESP 18; TEMP 36.8; O2SAT 99; BMI 18.8
--- NOTE | 2024-12-23 11:36 | ED_ITS ---
HPI - General Adult General Chief complaint: General Medical Stated complaint: TB test to be redone Time Seen by Provider: 12/23/24 11:54 Source: patient Mode of arrival: ambulatory Limitations: no limitations History of Present Illness HPI narrative: Patient was sent here by school for possible TB. The patient is completely asymptomatic, she has no cough and no fever no congestion she was seen here few days ago she had the TB blood test which was negative. Onset (ago): day(s) (4) Radiation: non-radiation Relieving factors: none Exacerbating factors: none Associated symptoms: denies other symptoms Related Data Previous Rx's ?Medication ?Instructions ?Recorded acetaminophen 500 mg tablet 500 mg PO Q6H PRN pain #30 tabs 12/16/24 (Tylenol Extra Strength) ibuprofen 600 mg tablet 600 mg PO Q6H PRN pain #30 tabs 12/16/24 Allergies Allergy/AdvReac Type Severity Reaction Status Date / Time No Known Allergies Allergy Verified 12/23/24 11:36 Review of Systems 2 Constitutional: Constitutional: Reports no additional constitutional complaints Cardiovascular: Cardiovascular: Reports no additional cardiovascular complaints [facility] Past Medical History [facility] Narrative: Denies any major medical problem, no risk factor for TB she is now homeless no HIV non drug user Medical History No pertinent past medical history Social History Social History Patient Tobacco Use Status: Former Tobacco user Advance Directives: No Advance Directives Information Provided: Yes Physical Exam ED Vital Signs: Vital Signs - 24 hr 12/23/24 11:32 Temperature 98.2 F Pulse Rate 80 Respiratory Rate 18 Blood Pressure 116/67 Pulse Oximetry 99 Oxygen Delivery Method Room Air BMI result Body Mass Index 18.8 Not acute distress looks well Const General: cooperative Nutritional Appearance: average body habitus Orientation/consciousness: patient oriented x3 HENMT Head: Yes normal to inspection General nose exam: Normal external nose present Face and sinus: Yes normal facial exam Mouth: Normal oral and palatal mucosa present Throat: Yes posterior oropharynx normal Neck Neck: Yes normal visual inspection Chest Chest palpation & inspection: normal inspection of the chest Resp Effort & Inspection: normal respiratory effort Auscultation: clear to auscultation bilaterally Cardio Jugular venous distension: no JVD Rate: regular rate Rhythm: regular rhythm GI Inspection: Yes normal to inspection Palpation (GI): Soft to palpation, not firm and nontender Auscultation: normal bowel sounds General: Yes no CVA tenderness Back/Spine/Pelvis Back: no CVA tenderness Skin General skin exam: no rashes or lesions noted, elasticity normal and turgor normal Lesions: no lesions Rashes: no rashes Neuro General: patient oriented x3 Cranial nerves: Yes CN's II-XII intact bilaterally Coordination: [id number] test normal Course Course Course Narrative: RME, this is a rapid medical exam performed by Bert Magallon please refer to primary provider for complete H&P- 24-year-old female presents for evaluation of medical clearance. Patient is referred to this ED by [facility] to rule out tuberculosis. The patient reports a cough and body aches going on and off for several months. Plan for labs, chest x-ray. The patient reports that she was born in [facility] but has visited [facility] as a child and her mother visits regularly. The patient has never been incarcerated. Patient reports history of abnormal TB skin test. Plan for labs, chest x-ray Medical Decision Making Medical Decision Making MDM Narrative: Patient has no clinical symptoms or tuberculosis no risk factor and she had a blood test for TB which was negative few days ago. Patient can be discharged home. She can follow-up with the primary care physician Lab Data [facility] Lab Attestation statement: I reviewed the patient's lab results. 12/23/24 11:44 12/23/24 11:44 Labs: Lab Results 12/23/24 12/23/24 Range/Units 11:43 11:44 WBC 5.4 (4.8-10.8) X10*3/uL RBC 4.22 (4.20-5.50) X10*6/uL Hgb 11.6 L (12.0-16.0) g/dl Hct 35.6 L (37.0-47.0) % MCV 84.4 (80.0-98.0) fL MCH 27.5 (27.0-33.0) pg MCHC 32.6 (31.0-35.0) g/dl RDW 13.5 (11.0-16.0) % Plt Count 317 (160-400) X10*3/uL MPV 9.4 (9.4-12.3) fL Immature Gran % (Auto) 0.4 (0.0-0.4) % Neut % (Auto) 61.7 (45-73) % Lymph % (Auto) 24.9 (20-40) % [place] % (Auto) 12.0 H (2-11) % Eos % (Auto) 0.6 (0-4) % Baso % (Auto) 0.4 (0-2) % Lymph # (Auto) 1.3 (1.2-4.9) X10*3/uL [place] # (Auto) 0.6 (0.1-1.2) X10*3/uL Eos # (Auto) 0.0 (0.0-0.4) X10*3/uL Baso # (Auto) 0.0 (0.0-0.2) X10*3/uL Abs Immat Gran (auto) 0.02 (0.00-0.03) X10*3/uL Absolute Neuts (auto) 3.3 (2.0-8.3) x10*3/uL Absolute Nucleated RBC 0.000 (0.0-0.012) X10*3/uL Nucleated RBC % (auto) 0.0 (0.0-0.2) /100WBC Sodium 138 (135-145) mmol/L Potassium 4.3 (3.3-5.1) mmol/L Chloride 106 (96-108) mmol/L Carbon Dioxide 29 (22-29) mmol/L Anion Gap 7 L (12-20) BUN 8 L (9-16) mg/dL Creatinine 0.72 (0.5-1.4) mg/dL Estim Creat Clear Calc 97.5 Estimated GFR > 60 Random Glucose 103 (60-115) mg/dL Calcium 9.7 D (8.4-10.2) mg/dL Total Bilirubin 0.3 (0.0-1.0) mg/dL AST 33 H (5-31) U/L ALT 26 (0-31) U/L Alkaline Phosphatase 64 (39-117) U/L Total Protein 7.5 (6.5-8.0) g/dL Albumin 4.0 (3.5-5.0) g/dL Lipase 22 (8-78) U/L Hold Green Top See Note Influenza Type A (PCR) NEGATIVE (Negative) Influenza Type B (PCR) NEGATIVE (Negative) RSV RNA Qual (PCR) POSITIVE A (Negative) SARS-CoV-2 RNA (RT-PCR) POSITIVE A (Negative) External Record Review External record reviewed: Other (ED record the reviewed) Discharge Plan Discharge Clinical Impression: Normal exam Patient Disposition: Home, Self-Care Additional Instructions: Follow-up with your primary care physician, we do not think that you have tuberculosis Prescriptions: No Action ibuprofen 600 mg tablet 600 mg PO Q6H PRN (Reason: pain) Qty: 30 0RF acetaminophen [Tylenol Extra Strength] 500 mg tablet 500 mg PO Q6H PRN (Reason: pain) Qty: 30 0RF Interventions: ED Discharge Assessment Last Done: 12/23/24 12:15 Discharge Date/Time: 12/23/24 12:26 Print Language: Lao
[2024-12-23 11:50] LABS: MANUAL DIFF FLAG NO
[2024-12-23 11:57] LABS: Basophils Percent Auto 0.4 % (0-2); Eosinophils Percent Auto 0.6 % (0-4); Hematocrit 35.6 % (37.0-47.0); Hemoglobin 11.6 g/dl (12.0-16.0); Imm Gran Abs Auto 0.02 X10*3/uL (0.00-0.03); Imm Gran Pct Auto 0.4 % (0.0-0.4); Lymphocytes Absolute Auto 1.3 X10*3/uL (1.2-4.9); Lymphocytes Percent Auto 24.9 % (20-40); Mean Corpuscular HGB Conc 32.6 g/dl (31.0-35.0); Mean Corpuscular Hemoglobin 27.5 pg (27.0-33.0); Mean Corpuscular Volume 84.4 fL (80.0-98.0); Mean Platelet Volume 9.4 fL (9.4-12.3); Monocytes Absolute Auto 0.6 X10*3/uL (0.1-1.2); Neutrophils Absolute Auto 3.3 x10*3/uL (2.0-8.3); Neutrophils Percent Auto 61.7 % (45-73); Platelet Count 317 X10*3/uL (160-400); Red Blood Count 4.22 X10*6/uL (4.20-5.50); Red Cell Distribution Width 13.5 % (11.0-16.0); White Blood Count 5.4 X10*3/uL (4.8-10.8)
[2024-12-23 12:04] LABS: Alanine Aminotransferase 26 U/L (0-31); Alkaline Phosphatase 64 U/L (39-117); Anion Gap 7 (12-20); Aspartate Amino Transferase 33 U/L (5-31); Bilirubin Total 0.3 mg/dL (0.0-1.0); Blood Urea Nitrogen 8 mg/dL (9-16); Calcium 9.7 mg/dL (8.4-10.2); Carbon Dioxide 29 mmol/L (22-29); Chloride 106 mmol/L (96-108); Creatinine Clr Calc Pharmacy 97.5; Estimated Glomerular Filt Rate > 60; Glucose Random 103 mg/dL (60-115); Lipase 22 U/L (8-78); Potassium 4.3 mmol/L (3.3-5.1); Sodium 138 mmol/L (135-145); Total Protein 7.5 g/dL (6.5-8.0)
[2024-12-23 12:15] VITALS: BP 116/67; PULSE 80; RESP 18; TEMP 36.8; O2SAT 99
--- NOTE | 2024-12-23 12:21 | PC.NURSE ---
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 seen [place] 12/15 at [facility] [place] w + covid test, negative t spot test. school RN reported that pt had been instructed to present to [facility] ED after consulting with their TB clinic. plan to discharge, [facility] to send a ride to take patient to [facility]. Fidel notified.
[2024-12-23 12:34] LABS: Influenza A PCR NEGATIVE (Negative); Influenza B PCR NEGATIVE (Negative); Resp Syncy Virus RNA Qual PCR POSITIVE (Negative); SARS COV2 PCR INHOUSE POSITIVE (Negative)
--- OUTSIDE RECORDS SUMMARY | 2024-12-23 13:59 | XMS_ITS | Data Portability ---
Author Organization [place] - .[facility], [facility] Address [address] [place] [address] Assessment No assessment recorded. Plan of Treatment Reminders Order Date Submit Date Provider Last Modified By Organization Details Last Modified Time Details Appointments None recorded. Lab rapid strep group A, throat 2022 023 [email or web address] [facility] [place], [facility], [address] [place] [address], [id number], 3 13:27:04 influenza virus A + B + SARS-CoV-2 (COVID19) Ag panel, rapid IA, upper respiratory specimen 2022 023 [email or web address] os13 [facility], [place], [facility], [address] [place], [address], 3 13:27:04 unlisted lab - STD panel (swab)- cmd 2022 023 [facility], [address] [place] [address], [address], 3 02:15:08 HIV 1+2 AB + HIV 1 p24 Ag, qualitative immunoassay , serum 2022 023 [facility], [facility] [place], [address], 3 02:15:06 herpes simplex virus 2 IgG Ab inhibition, serum or plasma 2022 023 [facility], [facility] [place], [address], 3 13:14:09 HIV (1+2) Ab, rapid, unspecified specimen 2022 023 [facility], [address] [place], [address], 3 19:11:54 unlisted lab - STD panel (swab)- [facility] 2022 023 [facility], [facility] [place], [address], 3 00:09:09 HIV 1+2 AB + HIV 1 p24 Ag, qualitative immunoassay , serum 2022 023 [facility], [address] [place] [address], [address], 3 02:09:47 herpes simplex virus 2 IgG Ab inhibition, serum or plasma 2022 023 [facility], [facility] [place], [address], 3 04:10:29 Referral None recorded. Procedures None recorded. Surgeries None recorded. Imaging None recorded. Medication Orders amoxicillin 875 mg tablet [email or web address] [place] [address], [address] [place] [address], [address], 3 13:27:04 Florastor 250 mg capsule 2022 023 [email or web address] os13 [facility], [address] [place] [address], [address], 3 13:27:04 ibuprofen 600 mg tablet 2022 023 [email or web address] os13 [facility], [address] [place] [address], [address], 3 13:27:04 Chlorasepti c Throat [place] 1.4 % aerosol 2022 023 [email or web address] os13 [facility], [address] [place] [address], [address], 3 13:27:04 Patient TargetsNo targets recorded. Patient Instructions Encounter Date Encounter Id Patient Instructions Last Modified By Organization Details Last Modified Time 01/17/2023 [id number] A healthy lifestyle: care instructions [email or web address] Not available 01/17/2023 18:34:29 Thank you for visiting [employer].There are two ways to view your lab results: : ? 1. ?? The [employer] montrell is available to all patients 18 and older in the Montrell Store and [employer]. First-time montrell users will need to create an account; please note you? ll need to select a login and password for the montrell versus just using your patient portal login credentials. Your lab results will be posted to the [employer] montrell as soon as they? re available. ? 2. ?? Via email , as soon as lab results are available. If you don? t receive an email within the estimated time frame, give our Aftercare team a call at [phone]. STD TESTING Your visit today was potentially related to a sexually transmitted disease (STD). Testing and treatment may have been initiated by your caregiver. A definitive diagnosis often cannot be made at the time of the visit and tests are sent out to a laboratory help to ascertain answers to your concerns. As an urgent care provider, we have made our best attempt to diagnose your condition. However, it is important that you follow up with your regular provider for continued care as necessary. Please contact us with any questions regarding your care or treatment. We are here to help. HOME CARE Abstain from sexual intercourse for one week after treatment for you (or your partner) for a presumed STD, or until the results of your STD tests are back if you did not receive treatment at your visit today. Notifying and having your partner treated if possible, is essential to prevent spread of disease and repeated infection: if you resume sexual relations with an untreated partner, you will likely contract the STD again. Return if your symptoms do not resolve with treatment. Follow up with your primary care physician (or staff physician, if applicable) for ongoing medical treatment. Repeat testing after periods of time is usually needed to confirm that you have not been infected with certain STDs. TEST RESULTS If tests were performed during your visit, test results will be relayed to you by our Aftercare department. Please understand that some blood tests take longer to process than others as secondary testing may be performed to ensure accuracy. Some test results take up to two weeks for return to us from the laboratory; you may be asked to return to [facility] for a discussion of your results. Please call [facility] Aftercare if you desire a status update on your results. If you have questions on the day of treatment, you are best served to first contact the site you visited for care and testing so that you may speak with your providing caregiver. You can also reach Aftercare at ; office hours are 8 am to 9 pm Sat-Sat, and 9 am to 7 pm on weekends. [email or web address] Not available 01/17/2023 16:11:52 04/15/2023 [id number] A healthy lifestyle: care instructions [email or web address] Not available 04/15/2023 18:57:43 Thank you for visiting [employer] [facility]. We may be calling you to review your lab results or schedule a follow up appointment. The call will be through an automated system which asks you to press a cavazos to speak with one of our agents. Please be on the lookout for this call and listen to the message in its entirety. You may also view your lab results using the Perdoo montrell, available in the Montrell Store and [employer]. First-time montrell users will need to create an account; please note you? ll need to select a login and password for the montrell versus just using your patient portal login. Your lab results will be posted to the Per[employer] montrell as soon as they? re available. If you have any questions regarding your visit, our Aftercare department can be reached at [phone]. Our hours are Saturday ? Saturday from 8 am ? 11 pm or Saturday/Saturday from 9a ? 8p. STD TESTING Your visit today was potentially related to a sexually transmitted disease (STD). Testing and treatment may have been initiated by your caregiver. A definitive diagnosis often cannot be made at the time of the visit and tests are sent out to a laboratory help to ascertain answers to your concerns. As an urgent care provider, we have made our best attempt to diagnose your condition. However, it is important that you follow up with your regular provider for continued care as necessary. Please contact us with any questions regarding your care or treatment. We are here to help. HOME CARE Abstain from sexual intercourse for one week after treatment for you (or your partner) for a presumed STD, or until the results of your STD tests are back if you did not receive treatment at your visit today. Notifying and having your partner treated if possible, is essential to prevent spread of disease and repeated infection: if you resume sexual relations with an untreated partner, you will likely contract the STD again. Return if your symptoms do not resolve with treatment. Follow up with your primary care physician (or staff physician, if applicable) for ongoing medical treatment. Repeat testing after periods of time is usually needed to confirm that you have not been infected with certain STDs. TEST RESULTS If tests were performed during your visit, test results will be relayed to you by our Aftercare department. Please understand that some blood tests take longer to process than others as secondary testing may be performed to ensure accuracy. Some test results take up to two weeks for return to us from the laboratory; you may be asked to return to [facility] for a discussion of your results. Please call [facility] Aftercare if you desire a status update on your results. If you have questions on the day of treatment, you are best served to first contact the site you visited for care and testing so that you may speak with your providing caregiver. You can also reach Aftercare at ; office hours are 8 am to 9 pm Sat-Sat, and 9 am to 7 pm on weekends. [email or web address] Not available 04/15/2023 18:47:31 09/04/2023 [id number] A healthy lifestyle: care instructions [email or web address] Not available 09/04/2023 13:27:04 Thank you for visiting [employer] [facility]. We may be calling you to review your lab results or schedule a follow up appointment. The call will be through an automated system which asks you to press a cavazos to speak with one of our agents. Please be on the lookout for this call and listen to the message in its entirety. You may also view your lab results using the Perdoo montrell, available in the Montrell Store and [employer]. First-time montrell users will need to create an account; please note you? ll need to select a login and password for the montrell versus just using your patient portal login. Your lab results will be posted to the Perdo[employer] montrell as soon as they? re available. If you have any questions regarding your visit, our Aftercare department can be reached at [phone]. Our hours are Saturday ? Saturday from 8 am ? 11 pm or Saturday/Saturday from 9a ? 8p. Strep Throat Your Care Instructions Strep throat is a bacterial infection that causes sudden, severe sore throat and fever. Strep throat, which is caused by bacteria called streptococcus, is treated with antibiotics. Sometimes a strep test is necessary to tell if the sore throat is caused by strep bacteria. Treatment can help ease symptoms and may prevent future problems. Follow-up care is a cavazos part of your treatment and safety. Be sure to make and go to all appointments, and call your doctor if you are having problems. It's also a good idea to know your test results and keep a list of the medicines you take. How can you care for yourself at home? Take your antibiotics as directed. Do not stop taking them just because you feel better. You need to take the full course of antibiotics. Strep throat can spread to others until 24 hours after you begin taking antibiotics. During this time, you should avoid contact with other people at work or home, especially infants and children. Do not sneeze or cough on others, and wash your hands often. Keep your drinking glass and eating utensils separate from those of others, and wash these items well in hot, soapy water. Gargle with warm salt water at least once each hour to help reduce swelling and make your throat feel better. Use 1 teaspoon of salt mixed in 8 fluid ounces of warm water. Take an uhbt-fsb-zeuhayr pain medication, such as acetaminophen (Tylenol), ibuprofen (Advil, Motrin), or naproxen (Aleve). Read and follow all instructions on the label. Try an ojqh-ykb-ylwvhfk anesthetic throat spray or throat lozenges, which may help relieve throat pain. Drink plenty of fluids. Fluids may help soothe an irritated throat. Hot fluids, such as tea or soup, may help your throat feel better. Eat soft solids and drink plenty of clear liquids. Flavored ice pops, ice cream, scrambled eggs, sherbet, and gelatin dessert (such as Jell-O) may also soothe the throat. Get lots of rest. Do not smoke, and avoid secondhand smoke. If you need help quitting, talk to your doctor about stop-smoking programs and medicines. These can increase your chances of quitting for good. Use a vaporizer or humidifier to add moisture to the air in your bedroom. Follow the directions for cleaning the machine. When should you call for help? Call your doctor now or seek immediate medical care if: You have a new or higher fever. You have a fever with a stiff neck or severe headache. You have new or worse trouble swallowing. Your sore throat gets much worse on one side. Your pain becomes much worse on one side of your throat. Watch closely for changes in your health, and be sure to contact your doctor if: You are not getting better after 2 days (48 hours). You do not get better as expected. [email or web address] Not available 09/04/2023 12:23:34 Reason for Referral None Reported. Results Created Date Observation Date Name Description Value Unit Range Abnormal Flag Note LastModifiedBy Organization Detail LastModifiedTime 01/18/2001/18/2023 TRICH OMONA S PCR URINE trichomonas vaginalis DNA, PCR NOT DETECT ED not detect ed normal Not Available [facility] [address] [place], [address], 01/18/2023 12:19:03 01/18/20 23 01/19/2023 HEP C ANTIB NATALIYA HCV Ab NON REACTI VE non reacti ve normal Not Available [facility] [address] [place], [address], 01/19/2023 00:09:09 01/18/20 23 01/19/2023 HEP C ANTIB NATALIYA interpretati on: COMMEN T normal Not infec charles with HCV unles s early or acute infec tion is suspe cted (whic h may be delay ed in an immun ocomp romis ed indiv idual ), or other evide nce exist s to indic ate HCV infec tion. Not Available d Lab [address] [place], [address], 01/19/2023 00:09:09 01/18/20 23 01/18/2023 CHLAM YDIA/ GC PCR URINE chlamydia trachomatis, DNA, PCR, urogenital NOT DETECT ED not detect ed normal Not Available [facility] [address] [place], [address], 01/19/2023 00:09:11 01/18/20 23 01/18/2023 CHLAM YDIA/ GC PCR URINE neisseria gonorrhoeae, DNA, PCR, urogenital NOT DETECT ED not detect ed normal Not Available [facility] [address] [place], [address], 01/19/2023 00:09:11 01/18/20 23 01/19/2023 HEP B SURFA CE AG II HBsAg screen NEGATI VE negati ve normal Not Available [facility] [address] [place], [address], 01/19/2023 00:09:12 01/18/20 23 01/19/2023 HIV SCREE N 4TH GENER ATION WRFX HIV Ab/P24 Ag screen NON REACTI VE non reacti ve normal HIV Negat ronnie HIV-1 /HIV- 2 antib odies and HIV-1 p24 antig en were NOT detec charles. There is no labor atory evide nce of HIV infec tion. Not Available [facility] [place], [address], 01/19/2023 02:09:47 01/18/20 23 01/19/2023 HERPE S SIMPL EX VIRUS 1 AND 2 (IGG) WITH REFLE X TO HSV-2 INHIB ITION hsv 1 IgG, type spec 26.20 index 0.00-0 .90 high Negat ronnie <0.91 Equiv ocal 0.91 - 1.09 Posit ronnie >1.09 Note: Negat ronnie indic ates no antib odies detec charles to HSV-1 . Equiv ocal may sugge st early infec tion. If clini pallavi appro priat e, retes t at later date. Posit ronnie indic ates antib odies detec charles to HSV-1 . Not Available d Lab [address] [place], [address], 01/19/2023 04:10:28 01/18/20 23 01/19/2023 HERPE S SIMPL EX VIRUS 1 AND 2 (IGG) WITH REFLE X TO HSV-2 INHIB ITION hsv 2 IgG, type spec <0.91 index 0.00-0 .90 normal Negat ronnie <0.91 Equiv ocal 0.91 - 1.09 Posit ronnie >1.09 Note: Negat ronnie indic ates no HSV-2 antib odies detec charles. Posit ronnie indic ates HSV-2 antib odies detec charles. Equiv ocal and low posit ronnie HSV-2 scree ns (Inde x 0.91- 5.00) may be false posit ronnie and are refle xed to suppl thomas luna in accor dance with CDC guide lines . Not Available d Lab [address], [place], [address], 01/19/2023 04:10:28 01/18/20 23 01/19/2023 SYPHI LIS SCREE N/REF DARRYN TO RPR T pallidum antibodies NON REACTI VE non reacti ve normal Not Available [facility] [address] [place], [address], 01/19/2023 18:09:54 04/15/20 23 04/16/2023 HERPE S SIMPL EX VIRUS 1 AND 2 (IGG) WITH REFLE X TO HSV-2 INHIB ITION hsv-1 IgG antibody index >8.00 ai <0.89 high AI Inter preta tion <0.9 Negat ronnie 0.9 - 1.0 Equiv ocal > or = 1.1 Posit ronnie Not Available [facility] [address], [place], [address], 04/16/2023 13:14:08 04/15/20 23 04/16/2023 HERPE S SIMPL EX VIRUS 1 AND 2 (IGG) WITH REFLE X TO HSV-2 INHIB ITION hsv-2 IgG antibody index <0.20 ai <0.89 normal AI Inter preta tion <0.9 Negat ronnie 0.9 - 1.0 Equiv ocal > or = 1.1 Posit ronnie Not Available [facility] [address], [place], [address], 04/16/2023 13:14:08 04/15/20 23 04/17/2023 HIV SCREE N 4TH GENER ATION WRFX HIV Ab/P24 Ag screen NON REACTI VE non reacti ve normal HIV Negat ronnie HIV-1 /HIV- 2 antib odies and HIV-1 p24 antig en were NOT detec charles. There is no labor atory evide nce of HIV infec tion. Not Available [facility] [address], [place], [address], 04/17/2023 02:15:06 04/15/2004/17/2023 HEP C ANTIB NATALIYA HCV Ab NON REACTI VE non reacti ve normal Not Available [facility] [address] [place], [address], 04/17/2023 02:15:08 04/15/20 23 04/17/2023 HEP C ANTIB NATALIYA interpretati on: COMMEN T normal Not infec charles with HCV unles s early or acute infec tion is suspe cted (whic h may be delay ed in an immun ocomp romis ed indiv idual ), or other evide nce exist s to indic ate HCV infec tion. Not Available [facility] [address] [place], [address], 04/17/2023 02:15:08 04/15/20 23 04/17/2023 CHLAM YDIA/ GC PCR URINE chlamydia trachomatis, DNA, PCR, urogenital NOT DETECT ED not detect ed normal Not Available [facility] [address] [place], [address], 04/17/2023 06:46:06 04/15/20 23 04/17/2023 CHLAM YDIA/ GC PCR URINE neisseria gonorrhoeae, DNA, PCR, urogenital NOT DETECT ED not detect ed normal Not Available [facility] [address] [place], [address], 04/17/2023 06:46:06 04/15/20 23 04/17/2023 TRICH OMONA S PCR URINE trichomonas vaginalis DNA, PCR NOT DETECT ED not detect ed normal Not Available [facility] [address] [place], [address], 04/17/2023 06:46:11 04/15/20 23 04/17/2023 HEP B SURFA CE AG II HBsAg screen NEGATI VE negati ve normal Not Available [facility] [place], [address], 04/17/2023 06:46:12 04/15/20 23 04/17/2023 SYPHI LIS SCREE N/REF DARRYN TO RPR T pallidum antibodies NON REACTI VE non reacti ve normal Not Available [facility] [address] [place], [address], 04/17/2023 16:13:07 04/15/20 23 04/15/2023 HIV (1+2) Ab, rapid , unspe cifie d speci men Unknown Analyte negati ve Not Available [address], [address], 04/15/2023 18:47:36 09/04/20 23 09/04/2023 rapid strep group A, throa t Group A Strep POSITI VE Not Available [address], [address], 09/04/2023 12:23:19 09/04/20 23 09/04/2023 influ valdez virus A + B + SARS- CoV-2 (COVI D19) Ag panel , rapid IA, upper respi rator y speci men Flu A NEGATI VE Not Available [address], [address], 09/04/2023 12:23:18 09/04/20 23 09/04/2023 influ valdez virus A + B + SARS- CoV-2 (COVI D19) Ag panel , rapid IA, upper respi rator y speci men Flu B NEGATI VE Not Available [address], [address], 09/04/2023 12:23:18 09/04/20 23 09/04/2023 influ valdez virus A + B + SARS- CoV-2 (COVI D19) Ag panel , rapid IA, upper respi rator y speci men Covid-19 NEGATI VE Not Available [address], [address], 09/04/2023 12:23:18 Result Notes None recorded. Problems No Known Problems Procedures Surgical History Date Name Laterality Status Provider Name and Address Organization Details Recorded Time 04/15/20 23 . Venipuncture completed Maryjane ZURITA - .[facility] 04/15/2023 18:53:11 01/18/20 . Venipuncture by Provider completed Juanis ZURITA - .[facility] 01/17/2023 16:11:31 Imaging Results None recorded. Procedure Notes None recorded. Medical Equipment None Reported. Allergies No known drug allergies Medications Name Sig Start Date Stop Date Status Note LastModified by Organization Details LastModified Time amoxicillin 875 mg tablet Take 1 tablet twice a day by oral route for 10 days. 2022 active Not Available Not Available Not Avai lable ibuprofen 600 mg tablet Take 1 tablet every 6 hours by oral route as needed for 14 days. 2022 active Not Available Not Available Not Avai lable Florastor 250 mg capsule Take 1 capsule twice a day by oral route for 14 days. 2022 active Not Available Not Available Not Avai lable Chloraseptic Throat [place] 1.4 % aerosol Take 2 sprays every 4-6 hours by mucous route as needed. 2022 active Not Available Not Available Not Avai lable Vitals Date Recorded Body height Body mass index (BMI) Body weight Body temperature Heart rate Respiratory rate Oxygen saturation Oxygen saturation in Arterial blood by Pulse oximetry Systolic blood pressure Diastolic blood pressure Provider Name and Address Organization Details Last Updated DateTime 3 165.1 cm 18.3 kg/m2 98371.1 6 g 98 [degF] 59 /min 16 /min 99 % 99 % 132 mm[Hg] 83 mm[Hg] Juanis Byers [place] - .[facility] 3 16:00:32 Date Recorded Body height Heart rate Body temperature Respiratory rate Oxygen saturation Oxygen saturation in Arterial blood by Pulse oximetry Body mass index (BMI) Body weight Systolic blood pressure Diastolic blood pressure Provider Name and Address Organization Details Last Updated DateTime 3 165.1 cm 85 /min 98.2 [degF] 16 /min 100 % 100 % 16.6 kg/m2 76384.2 4 g 134 mm[Hg] 84 mm[Hg] Maryjane ZURITA - .[facility] 3 18:37:24 Date Recorded Body height Body mass index (BMI) Body weight Heart rate Body temperature Respiratory rate Oxygen saturation Oxygen saturation in Arterial blood by Pulse oximetry Systolic blood pressure Diastolic blood pressure Provider Name and Address Organization Details Last Updated DateTime 3 165.1 cm 16.6 kg/m2 18702.2 4 g 79 /min 98.5 [degF] 16 /min 98 % 98 % 130 mm[Hg] 82 mm[Hg] Yasmin Said [place] - .[facility] 12:10:35 Social History Question Answer Notes LastModified by Organizat ion Details LastModified Time Tobacco Smoking Status Current Some Day Smoker Juanis Byers YUDITH [email or web address] - .[facility] 01/17/2023 15:56:21 RISK LEVEL - Segmentation Level 1 - Healthy [id number] Information not available 02/27/2023 What Was The Date Of Your Most Recent Tobacco Screening? 01/17/2023 [email or web address] Information not available 01/17/2023 Has Tobacco Cessation Counseling Been Provided? Yes [email or web address] Information not available 01/17/2023 On What Date Was Tobacco Cessation Counseling Provided? 01/17/2023 [email or web address] Information not available 01/17/2023 Sex: Unknown Functional Status None recorded. Mental Status None recorded. Family History Relationship Description Onset Age of this Age Resolved Age Notes LastModified by Organization Details LastModified Time Father No current problems or disability [email or web address] Not available 16:12:53 Mother No current problems or disability [email or web address] Not available 16:12:53 Medical History No medical history recorded. Gynecological HistoryNo gynecological history recorded. Obstetrics History GPAL:G 0 P 0 0 0 0 Past Encounters Encounter ID Performer Location Encounter Start Date Encounter Closed Date Diagnosis/Indication Diagnosis SNOMED-CT Code Diagnosis ICD10 Code Diagnosis Note [id number] David SLOAN [place] [address] [place] [address] 01/17/2023 15:35:04 01/17/2023 16:10:25 Venereal disease screening 844045292 Z11.3 Asymptomat ic patient, no concern about std, no notificati on from partner about STD.FU results and repeat panel in 3 months [id number] KENN TAMAYOEDELMIRA [facility]LOAN [place] [address] [place] [address] 04/15/2023 18:26:49 04/15/2023 18:49:53 Venereal disease screening [id number] Z11.3 [id number] David VILLAGOMEZY_ [place] [address] [place] [address] 09/04/2023 11:42:00 09/04/2023 12:27:18 Streptococcal sore throat [id number] J02.0 , + rapid strep in office; started on amoxicilli n and advised on appropriat e use and potential side effects; advised to take abx with food and to use a probiotic; advised re-eval in 2-3 days if not improving or sooner if getting worse Exposure t o viral disease [id number] Z20.828 symptoms suggestive of viral communicab le illness Health Concerns Section Related Observation LastModified by Organization Detai ls LastModified Time None Recorded Concern Status LastModified by Organization Details LastModified Time None Recorded Advance Directives Directive None Recorded Payers Encounter Date Sequence Insurance Name Policy Number Policy Kelley Covered Member ID Kelley Member ID Guarantor Name 01/17/2023 1 [facility] (MEDICAID HMO) [id number] Diaka Anderson [id number] Diaka Anderson 04/15/[address] [place] [address] (MEDICAID HMO) [facility] Diaka Anderson [id number] Diaka Anderson 09/04/[address] [place] [address] Diaka Anderson [id number] Diaka Anderson Notes Date Note Type Note Provider Name and Address Organization Details Recorded Time 01/17/2023 text/html STD Testing/Counseling/ Questionnaire - cmdReported bypatient.Timing:NO symptoms: Asymptomatic Testing Recent EXPOSURE to STD?NO recent STD exposure Symptoms:NO nausea; NO vomiting; NO dysuria; NO back pain; NO fever; NO abdominal pain; NO genital discharge; NO genital Lesions Recent TESTING for STD?NO recent STD testing Sexual Partner Hxsexually active with FEMALES HSV HistoryNO Hx of Cold Sores; NO Hx of Genital Herpes;(+) 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 STD HistoryNO Hx of STD Screening questions:HERPES 1&2 screening info given and discussed; HIV screening info given and discussedNotes:22 y/o female is asx and is requesting STD testing w/ HIV and herpes David Simental MD [address] [place] [address],[address], [place], [address] [place] - [facility] 01/19/2023 09:25:27 04/15/2023 text/html STD Testing/Counseling/ Questionnaire - cmdReported bypatient.Timing:NO symptoms: Asymptomatic Testing Recent EXPOSURE to STD?NO recent STD exposure Symptoms:NO nausea; NO vomiting; NO dysuria; NO back pain; NO fever; NO abdominal pain; NO genital discharge; NO genital Lesions Recent TESTING for STD?NO recent STD testing Sexual Partner Hxsexually active with FEMALES HSV HistoryNO Hx of Cold Sores; NO Hx of Genital Herpes STD HistoryNO Hx of STDNotes:Pt is asymptomatic, requesting STD panel with HIV and herpes testing.Pt denies concern for STD exposure, pt also requesting rapid HIV testing. YUDITH Mcelroy - .[facility] 04/17/2023 12:40:57 09/04/2023 text/html COVID-19 VISIT - cmdReported bypatient.Patient presents forCOVID-19 VISIT Pertinent findings:NO body aches; NO nasal symptoms; No CP; No leg swelling; No neurologic deficits; No SOB;(+) fever (T > 100.0);(+) sore throat;(+) cough COVID-19 exposure(+) Recent CONTACT w/ person DIAGNOSED (+) COVID-19 COVID vaccination status:(+) COVID Vaccination(pt unsure of which vaccine)Notes:23 y/o F p/w sore throat w/ discomofrt swallowing x 5 days and fever starting saturday. Covid exposure last week.OTC: acetaminophen David Simental MD [address] [place] [address],[address], [place], [address] [place] - [facility] 09/04/2023 18:45:55 OBGyn Episode No OBEpisode recorded.
--- OUTSIDE RECORDS SUMMARY | 2024-12-23 13:59 | XMS_ITS | Clinical Summary ---
Author Organization [facility] Address [address] [place] [phone] Phone Care Team Providers Care Supervisor Sewer [employer] Name Role Phone HaileyCintia Massiel Primary Care [...] age to complete this topic Care Teams Supervisor [employer]er [employer] Relationship Specialty Start Date End Date Massiel Juarez DO [address] [place] [address] PCP - General 07/23/16 Additional Source Comments [...] law may result in a fine or usp sentence or both. A general authorization for the release of medical or other informationisNOT sufficient authorization for further disclosure.[facility]
== END 2024-12-23 12:26 | disposition home or self-care (01) ==
PROVIDERS: Physician Assistant; Emergency Provider Emergency Medicine
DX: R79.89 Other specified abnormal findings of blood chemistry (principal); Z79.899 Other long term (current) drug therapy; Z03.818 Encounter for observation for suspected exposure to other biological agents ruled out; Z11.1 Encounter for screening for respiratory tuberculosis
CPT/HCPCS: 0241U; 36415; 80053; 83690; 85025; 99282; 99283

== ENCOUNTER 2025-05-04 12:00 | Outpatient (REF) | payer OTHER, SELFPAY ==
[2025-05-05 12:06] LABS: Chlamydia pneumoniae PCR Not Detected (Not Detect.); Coronavirus 229E PCR Not Detected (Not Detect.); Coronavirus HKU1 PCR Not Detected (Not Detect.); Coronavirus NL63 PCR Not Detected (Not Detect.); Coronavirus OC43 PCR Not Detected (Not Detect.); RSV PCR Not Detected (Not Detect.); Rhino/Enterovirus PCR Not Detected (Not Detect.)
[2025-05-05 12:31] LABS: Influenza A H1 PCR Not Detected (Not Detect.); Influenza A H1-2009 PCR Not Detected (Not Detect.); Influenza A H3 PCR Not Detected (Not Detect.); SARS-CoV-2 PCR Not Detected (Not Detect.)
== END 2025-05-04 12:01 | disposition home or self-care (01) ==
LOC: HO.LAB 12:00
PROVIDERS: PCP Physician Assistant; Visit Provider Physician Assistant
DX: J06.9 Acute upper respiratory infection, unspecified (principal); K59.00 Constipation, unspecified; R07.89 Other chest pain; R05.9 Cough, unspecified; R10.9 Unspecified abdominal pain; Z87.891 Personal history of nicotine dependence
CPT/HCPCS: 87633; 99202

== ENCOUNTER 2025-05-04 12:00 | Outpatient (AMB) | payer OTHER, SELFPAY ==
[2025-05-04 12:23] VITALS: BP 104/70; PULSE 74; TEMP 36.9; O2SAT 99; BMI 19.0
--- NOTE | 2025-05-04 12:23 | MHC.OFFWIV ---
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 - Several month history of alternating diarrhea and constipation, with recent predominance of constipation and dark-colored or bloody stools. Denies fevers. - One week of cough, congestion, ear pain, sinus pain, body aches and headaches, partially relieved by Tylenol. - Sleep apnea-like symptoms: Episodes of waking up gasping for air. Physical Exam General: Cooperative, healthy appearing, comfortable and no acute distress Orientation/consciousness: Patient oriented x3 Limitations: No limitations Head: Normal to inspection Ears: Hearing grossly normal bilaterally, external ears normal, fluid present in both ears Nose: Normal external nose present, Normal nares present and No nasal discharge present Face and sinus: Normal facial exam and Yes sinuses nontender Mouth: Normal oral and palatal mucosa present and moist mucous membranes Throat: Yes tonsils normal, Yes uvula midline. Posterior oropharynx erythema, no exudates Eyes: Appearance normal, both eyes and all related structures Neck: Normal visual inspection, full ROM Respiratory: Clear to auscultation bilaterally. Normal respiratory effort, able to speak in complete sentences, no respiratory distress, not tachypneic, no tripod positioning and no use of accessory muscles Cardiovascular: Regular rate and rhythm. Normal S1 and S2 Skin: No rashes or lesions noted Neuro: Patient oriented x3 Extremities: Normal to inspection and Yes no clubbing, cyanosis or edema PFSH Medical History No pertinent past medical history Social History Patient Tobacco Use Status: Former Tobacco user Patient : No Female Reproductive History Menstrual Date of last menstrual period: 04/29/25 Review of Systems Const All systems reviewed & are unremarkable except as noted in HPI and below Physical Exam Vital Signs: Last Vital Signs Temp 98.5 F 05/04/25 12:23 Pulse 74 05/04/25 12:23 BP 104/70 05/04/25 12:23 Pulse Ox 99 05/04/25 12:23 Oxygen Delivery Method Room Air 05/04/25 12:23 BMI result Body Mass Index 19.0 Assessment & Plan Assessment & Plan (1) URI, acute: Code(s): J06.9 - Acute upper respiratory infection, unspecified Plan: Plan - VSS, pt well appearing and PE remarkable for posterior oropharynx erythema - Recommend Dulcolax and Colace for constipation management, with Metamucil for fiber supplementation if diarrhea is not present. - Use Tawana D for congestion and a prescription cough suppressant for nighttime use. - Establish care with a primary care physician for evaluation of sleep apnea-like symptoms and ongoing health issues. Patient was informed and verbally consented to the use of an ambient scribe for clinic note documentation during this visit (2) Constipation: Code(s): K59.00 - Constipation, unspecified Qualifiers: Constipation type: unspecified constipation type Qualified Code(s): K59.00 - Constipation, unspecified Plan: as above Orders: Orders Resp Pathogen Panel - [facility] Today J06.9 - Acute upper respiratory infection, unspecified Medications: New benzonatate 200 mg PO BEDTIME PRN 10 caps 0RF cough Coding Level of Care Code New Pt Level 3 (64519) Diagnoses URI, acute J06.9 Constipation, unspecified constipation type K59.00 Constipation type: unspecified constipation type
--- OUTSIDE RECORDS SUMMARY | 2025-05-04 13:25 | XMS_ITS | Data Portability ---
Author Organization [place] - .[facility], [facility] Address [address] [place] [address] Assessment No assessment recorded. Plan of Treatment Reminders Order Date Submit Date Provider Last Modified By Organization Details Last Modified Time Details Appointments None recorded. Lab rapid strep group A, throat 2022 023 [email or web address] [facility], [address] [place] [address], [address], 3 13:27:04 influenza virus A + B + SARS-CoV-2 (COVID19) Ag panel, rapid IA, upper respiratory specimen 2022 023 [email or web address] os13 [facility], [address] [place], [address], 3 13:27:04 unlisted lab - STD panel (swab)- d 2022 023 [facility], [address] [place], [address], 3 02:15:08 HIV 1+2 AB + HIV 1 p24 Ag, qualitative immunoassay , serum 2022 023 [facility], [address] [place], [address], 3 02:15:06 herpes simplex virus 2 IgG Ab inhibition, serum or plasma 2022 023 [facility], [address] [place], [address], 3 13:14:09 HIV (1+2) Ab, rapid, unspecified specimen 2022 023 [facility], [address] [place], [address], 3 19:11:54 unlisted lab - STD panel (swab)- [facility] 2022 023 [facility], [address] [place], [address], 3 00:09:09 HIV 1+2 AB + HIV 1 p24 Ag, qualitative immunoassay , serum 2022 023 [facility], [address] [place], [address], 3 02:09:47 herpes simplex virus 2 IgG Ab inhibition, serum or plasma 2022 023 [facility], [address] [place], [address], 3 04:10:29 Referral None recorded. Procedures None recorded. Surgeries None recorded. Imaging None recorded. Medication Orders amoxicillin 875 mg tablet 2022 [email or web address] [facility], [address] [place] [address], [address], 3 13:27:04 Florastor 250 mg capsule 2022 0[email or web address] [facility], [address] [place] [address], [address], 3 13:27:04 ibuprofen 600 mg tablet 2022 0[email or web address] [facility], [address] [place] [address], [address], 13:27:04 Chlorasepti c Throat [place] 1.4 % aerosol 2022 [email or web address] [facility], [address] [place] [address], [address], 3 13:27:04 Patient TargetsNo targets recorded. Patient Instructions Encounter Date Encounter Id Patient Instructions Last Modified By Organization Details Last Modified Time 01/17/2023 [id number] A healthy lifestyle: care instructions [email or web address] Not available 01/17/2023 18:34:29 Thank you for visiting [facility].There are two ways to view your lab results: : 1. The [employer] montrell is available to all patients 18 and older in the Mont[employer] Store and web care [employer]. First-time montrell users will need to create an account; please note you l l need to select a login and password for the montrell versus just using your patient portal login credentials. Your lab results will be posted to the [employer] montrell as soon as they r e available. 2. Via email , as soon as lab results are available. If you don t receive an email within the estimated time frame, give our Aftercare team a call at [phone]. STD TESTING Your visit today was potentially [...] up with your primary care physician (or vp delivery, if applicable) for ongoing medical treatment. Repeat [...] you may be asked to return to [facility] for a discussion of your results. Please call [facility] Aftercare if you desire a status update [...] 9 am to 7 pm on weekends. [email or web address] Not available 01/17/2023 16:11:52 04/15/2023 [id number] A healthy lifestyle: care instructions [email or web address] Not available 04/15/2023 18:57:43 Thank you for visiting [facility]. We may be calling you to review your lab results or schedule a follow up appointment. The call will be through an automated system which asks you to press a cavazos to speak with one of our agents. Please be on the lookout for this call and listen to the message in its entirety. You may also view your lab results using the [employer] montrell, available in the Montrell Store and [employer]. First-time montrell users will need to create an account; please note you l l need to select a login and password for the montrell versus just using your patient portal login. Your lab results will be posted to the [employer] montrell as soon as they r e available. If you have any questions regarding your visit, our Aftercare department can be reached at [phone]. Our hours are Saturday from 8 am 11 pm or Saturday/Saturday from 9a 8p. STD TESTING Your visit today was [...] up with your primary care physician (or vp delivery, if applicable) for ongoing medical treatment. Repeat [...] you may be asked to return to [facility] for a discussion of your results. Please call [facility] Aftercare if you desire a status update on your results. If you have questions on the day of treatment, you are best served to first contact the site you visited for care and testing so that you may speak with your providing caregiver. You can also reach Aftercare at ; office hours are 8 am to 9 pm Mon-Sat, and 9 am to 7 pm on weekends. [email or web address] Not available 04/15/2023 18:47:31 09/04/2023 [id number] A healthy lifestyle: care instructions [email or web address] Not available 09/04/2023 13:27:04 Thank you for visiting [facility]. We may be calling you to review your lab results or schedule a follow up appointment. The call will be through an automated system which asks you to press a cavazos to speak with one of our agents. Please be on the lookout for this call and listen to the message in its entirety. You may also view your lab results using the [employer] montrell, available in the Montrell Store and [employer]. First-time montrell users will need to create an account; please note you l l need to select a login and password for the montrell versus just using your patient portal login. Your lab results will be posted to the [employer] montrell as soon as they r e available. If you have any questions regarding your visit, our Aftercare department can be reached at [phone]. Our hours are Saturday from 8 am 11 pm or Saturday/Saturday from 9a 8p. Strep Throat Your Care Instructions Strep [...] fluid ounces of warm water. Take an mrtw-mqj-esydyqh pain medication, such as acetaminophen (Tylenol), ibuprofen (Advil, Motrin), or naproxen (Aleve). Read and follow all instructions on the label. Try an emvz-nek-ubnouck anesthetic throat spray or throat lozenges, which [...] ED not detect ed normal Not Available [facility] [address] [place], [address], 01/18/2023 12:19:03 01/18/2001/19/2023 HEP C ANTIB NATALIYA HCV Ab NON REACTI VE non reacti ve normal Not Available [facility] [address] [place], [address], 01/19/2023 00:09:09 01/18/2001/19/2023 HEP C ANTIB NATALIYA interpretati on: COMMEN T normal Not infec charles with HCV unles s early or acute infec tion is suspe cted (whic h may be delay ed in an immun ocomp romis ed indiv idual ), or other evide nce exist s to indic ate HCV infec tion. Not Available d Lab [address] [place], [address], 01/19/2023 00:09:09 01/18/20 23 01/18/2023 CHLAM YDIA/ GC PCR URINE chlamydia trachomatis, DNA, PCR, urogenital NOT DETECT ED not detect ed normal Not Available [facility] [address] [place], [address], 01/19/2023 00:09:11 01/18/20 23 01/18/2023 CHLAM YDIA/ GC PCR URINE neisseria gonorrhoeae, DNA, PCR, urogenital NOT DETECT ED not detect ed normal Not Available [facility] [address], [place], [address], 01/19/2023 00:09:11 01/18/20 23 01/19/2023 HEP B SURFA CE AG II HBsAg screen NEGATI VE negati ve normal Not Available d Lab [address], [place], [address], 01/19/2023 00:09:12 01/18/20 23 01/19/2023 HIV SCREE N 4TH GENER ATION WRFX HIV Ab/P24 Ag screen NON REACTI VE non reacti ve normal HIV Negat ronnie HIV-1 /HIV- 2 antib odies and HIV-1 p24 antig en were NOT detec charles. There is no labor atory evide nce of HIV infec tion. Not Available d Lab [address] [place], [address], 01/19/2023 02:09:47 01/18/20 23 01/19/2023 HERPE S [...] HSV-1 . Not Available d Lab [address] [place], [address], 01/19/2023 04:10:28 01/18/20 23 01/19/2023 HERPE S [...] ronnie and are refle xed to suppl htomas luna in accor dance with CDC guide lines . Not Available d Lab [address] [place], [place] [address] [place], [address], 01/19/2023 04:10:28 01/18/20 23 01/19/2023 SYPHI LIS SCREE N/REF DARRYN TO RPR T pallidum antibodies NON REACTI VE non reacti ve normal Not Available d Lab [address] [place], [address], 01/19/2023 18:09:54 04/15/20 23 04/16/2023 HERPE S SIMPL EX VIRUS 1 AND 2 (IGG) WITH REFLE X TO HSV-2 INHIB ITION hsv-1 IgG antibody index >8.00 ai <0.89 high AI Inter preta tion <0.9 Negat ronnie 0.9 - 1.0 Equiv ocal > or = 1.1 Posit ronnie Not Available [facility] [address] [place], [address], 04/16/2023 13:14:08 04/15/20 23 04/16/2023 HERPE S SIMPL EX VIRUS 1 AND 2 (IGG) WITH REFLE X TO HSV-2 INHIB ITION hsv-2 IgG antibody index <0.20 ai <0.89 normal AI Inter preta tion <0.9 Negat ronnie 0.9 - 1.0 Equiv ocal > or = 1.1 Posit ronnie Not Available [facility] [address] [place], [address], 04/16/2023 13:14:08 04/15/20 23 04/17/2023 HIV SCREE N 4TH GENER ATION WRFX HIV Ab/P24 Ag screen NON REACTI VE non reacti ve normal HIV Negat ronnie HIV-1 /HIV- 2 antib odies and HIV-1 p24 antig en were NOT detec charles. There is no labor atory evide nce of HIV infec tion. Not Available d Lab [address], [place], [address], 04/17/2023 02:15:06 04/15/20 23 04/17/2023 HEP C ANTIB NATALIYA HCV Ab NON REACTI VE non reacti ve normal Not Available [facility] [address], [place], [address], 04/17/2023 02:15:08 04/15/20 23 04/17/2023 HEP C ANTIB NATALIYA interpretati on: COMMEN T normal Not infec charles with HCV unles s early or acute infec tion is suspe cted (whic h may be delay ed in an immun ocomp romis ed indiv idual ), or other evide nce exist s to indic ate HCV infec tion. Not Available [facility] [address], [place], [address], 04/17/2023 02:15:08 04/15/20 23 04/17/2023 CHLAM YDIA/ GC PCR URINE chlamydia trachomatis, DNA, PCR, urogenital NOT DETECT ED not detect ed normal Not Available [facility] [address] [place], [address], 04/17/2023 06:46:06 04/15/20 23 04/17/2023 CHLAM YDIA/ GC PCR URINE neisseria gonorrhoeae, DNA, PCR, urogenital NOT DETECT ED not detect ed normal Not Available [facility] [address] [place], [address], 04/17/2023 06:46:06 04/15/20 23 04/17/2023 TRICH OMONA S PCR URINE trichomonas vaginalis DNA, PCR NOT DETECT ED not detect ed normal Not Available [facility] [address] [place], [address], 04/17/2023 06:46:11 04/15/20 23 04/17/2023 HEP B SURFA CE AG II HBsAg screen NEGATI VE negati ve normal Not Available d Lab [facility] [place], [address], 04/17/2023 06:46:12 04/15/20 23 04/17/2023 SYPHI LIS SCREE N/REF DARRYN TO RPR T pallidum antibodies NON REACTI VE non reacti ve normal Not Available [facility] [place], [address], 04/17/2023 16:13:07 04/15/2004/15/2023 HIV (1+2) Ab, rapid , unspe cifie d speci men Unknown Analyte negati ve Not Available [facility]_ [address], [address], 04/15/2023 18:47:36 12/20/20 23 09/04/2023 rapid strep group A, throa t Group A Strep POSITI VE Not Available [address], [address], 09/04/2023 12:23:19 09/04/20 23 09/04/2023 influ valdez virus A + B + SARS- CoV-2 (COVI D19) Ag panel , rapid IA, upper respi rator y speci men Flu A NEGATI VE Not Available [address], [address], 09/04/2023 12:23:18 09/04/20 23 09/04/2023 influ valdez virus A + B + SARS- CoV-2 (COVI D19) Ag panel , rapid IA, upper respi rator y speci men Flu B NEGATI VE Not Available [address], [address], 09/04/2023 12:23:18 09/04/20 23 09/04/2023 influ valdez virus A + B + SARS- CoV-2 (COVI D19) Ag panel , rapid IA, upper respi rator y speci men Covid-19 NEGATI VE Not Available [address], [address], 09/04/2023 12:23:18 Result Notes None recorded. Problems No Known Problems Procedures Surgical History Date Name Laterality Status Provider Name and Address Organization Details Recorded Time 04/15/20 23 . [facility] 04/15/2023 18:53:11 01/18/20 23 . Venipuncture by Provider completed [facility]is [facility] 01/17/2023 16:11:31 Imaging Results None recorded. Procedure [...] Not Available Not Avai lable Chloraseptic Throat [place] 1.4 % aerosol Take 2 sprays every 4-6 hours by mucous route as needed. 2022 active Not Available Not Available Not Avai lable Vitals Date Recorded Body height Body mass index (BMI) Body weight Body temperature Heart rate Respiratory rate Oxygen saturation Oxygen saturation in Arterial blood by Pulse oximetry Systolic And Diastolic Provider Name and Address Organization Details Last Updated DateTime 3 165.1 cm 18.3 kg/m2 31363.1 6 g 98 [degF] 59 /min 16 /min 99 % 99 % 132/83 mm[Hg] Juanis Byers [facility] 3 16:00:32 Date Recorded Body height Heart rate Body temperature Respiratory rate Oxygen saturation Oxygen saturation in Arterial blood by Pulse oximetry Body mass index (BMI) Body weight Systolic And Diastolic Provider Name and Address Organization Details Last Updated DateTime 3 165.1 cm 85 /min 98.2 [degF] 16 /min 100 % 100 % 16.6 kg/m2 09935.2 4 g 134/84 mm[Hg] Maryjane Rao [facility] 3 18:37:24 Date Recorded Body height Body mass index (BMI) Body weight Heart rate Body temperature Respiratory rate Oxygen saturation Oxygen saturation in Arterial blood by Pulse oximetry Systolic And Diastolic Provider Name and Address Organization Details Last Updated DateTime 3 165.1 cm 16.6 kg/m2 67009.2 4 g 79 /min 98.5 [degF] 16 /min 98 % 98 % 130/82 mm[Hg] Yasmin Robins [facility] 3 12:10:35 Social History Question Answer Notes LastModified by Organizat ion Details LastModified Time Tobacco Smoking Status Current Some Day Smoker Juanisanika HannahByersYUDITH villalba - .[facility] 01/17/2023 15:56:21 RISK LEVEL - Segmentation Level 1 - Healthy [id number] Information not available 02/27/2023 What Was The Date Of Your Most Recent Tobacco Screening? 01/17/2023 [email or web address] Information not available 01/17/2023 Has Tobacco Cessation Counseling Been Provided? Yes Information not available 01/17/2023 On What Date Was Tobacco Cessation Counseling Provided? 01/17/2023 [email or web address] Information not available 01/17/2023 Sex: Unknown Functional Status None recorded. Mental Status None recorded. Family History Relationship Description Onset Age of this Age Resolved Age Notes LastModified by Organization Details LastModified Time Father No current problems or disability [email or web address] Not available 16:12:53 Mother No current problems or disability [email or web address] Not available 16:12:53 Medical History No medical history recorded. Gynecological HistoryNo gynecological history recorded. Obstetrics History GPAL:G 0 P 0 0 0 0 Past Encounters Encounter ID Performer Location Encounter Start Date Encounter Closed Date Diagnosis/Indication Diagnosis SNOMED-CT Code Diagnosis ICD10 Code Diagnosis IMO Codes Diagnosis Note [id number] David Simental MD [facility] [address] [place] [address] 01/17/2023 15:35:04 01/17/2023 16:10:25 Venereal disease screening 584548208 Z11.3 Asymptomat ic patient, no concern about std, no notificati on from partner about STD.FU results and repeat panel in 3 months [id number] Michael Fran DO [facility] [address] [place] [address] 04/15/2023 18:26:49 04/15/2023 18:49:53 Venereal disease screening 729811354 Z11.3 [id number] David Simental MD [facility] [address] [place] [address] 09/04/2023 11:42:00 09/04/2023 12:27:18 Streptococcal sore throat 53465636 J02.0 , + rapid strep in office; started on amoxicilli n and advised on appropriat e use and potential side effects; advised to take abx with food and to use a probiotic; advised re-eval in 2-3 days if not improving or sooner if getting worse Exposure t o viral disease 3030791219 86376 Z20.828 symptoms suggestive of viral communicab le illness Health Concerns Section Related Observation LastModified by Organization Detai ls LastModified Time None Recorded Concern Status LastModified by Organization Details LastModified Time None Recorded Advance Directives Directive None Recorded Payers Insurance Date Sequence Insurance Name Policy Number Policy Kelley Covered Member ID Kelley Member ID Guarantor Name 09/04/2023 [facility] Barron [id number] Haja Anderson 09/04/2023 1 [facility] (MEDICAID HMO) [id number] Haja Bhandariba [id number] Haja Barron Notes Date Note Type Note Provider Name and Address Organization Details Recorded Time 01/17/2023 text/html STD Testing/Counseling/Q uestionnaire - cmdReported by PatientHPIFor hsv history, patient reports(+) hx of (+) antibody to hsv tested (+) for hsv 1but reportsno hx of cold soresandno hx of genital herpes. For timing, patient reportsno symptoms: asymptomatic testing. For recent exposure to std?, patient reportspossible std exposure. For symptoms, patient reportsno nausea,no vomiting,no dysuria,no back pain,no fever,no abdominal pain,no genital discharge, andno genital lesions. For recent testing for std?, patient reportsno recent std testing. For sexual partner hx, patient reportssexually active with females. For std history, patient reportsno hx of std. For screening questions, patient reportsherpes 1&2 screening info given and discussedandhiv screening info given and discussed.22 y/o female is asx and is requesting STD testing w/ HIV and herpes David Simental MD [address] [place] [address],[address], [place], [address], [facility] - .[facility] 01/19/2023 09:25:27 04/15/2023 text/html STD Testing/Counseling/Q uestionnaire - cmdReported by PatientHPIFor timing, patient reportsno symptoms: asymptomatic testing. For recent exposure to std?, patient reportspossible std exposure. For symptoms, patient reportsno nausea,no vomiting,no dysuria,no back pain,no fever,no abdominal pain,no genital discharge, andno genital lesions. For recent testing for std?, patient reportsno recent std testing. For sexual partner hx, patient reportssexually active with females. For hsv history, patient reportsno hx of cold soresandno hx of genital herpes. For std history, patient reportsno hx of std.Pt is asymptomatic, requesting STD panel with HIV and herpes testing.Pt denies concern for STD exposure, pt also requesting rapid HIV testing. YUDITH Mcelroy - .[facility] 04/17/2023 12:40:57 09/04/2023 text/html COVID-19 VISIT - cmdReported by PatientHPIFor patient presents for, patient reportscovid-19 visit. For pertinent findings, patient reports(+) fever (t > 100.0),(+) sore throat, and(+) coughbut reportsno body aches,no nasal symptoms,no cp,no leg swelling,no neurologic deficits, andno sob. For covid vaccination status, patient reports(+) covid vaccination __ __ (pt unsure of which vaccine). For covid-19 exposure, patient reports(+) recent contact w/ person diagnosed (+) covid-19.23 y/o F p/w sore throat w/ discomofrt swallowing x 5 days and fever starting saturday. Covid exposure last week.OTC: acetaminophen David Simental MD [address] [place] [address],[address], [place], [address] [place] - .[facility] 09/04/2023 18:45:55 OBGyn Episode No OBEpisode recorded.
--- OUTSIDE RECORDS SUMMARY | 2025-05-04 13:25 | XMS_ITS ---
Author Name CRISP Organization Unknown Care Team Organization Name Specialty Phone Email Start Date End [facility] d[facility]b /a [facility]
--- OUTSIDE RECORDS SUMMARY | 2025-05-04 13:25 | XMS_ITS | Clinical Summary ---
Author Organization [facility] Address [address] [place] [id number] Phone Care Team Providers Care Cotton Factor Name Role Phone HaileyYannick Massiel Primary Care Provider Allergies No known [...] pain- hx of sprain 11/27/2016 01/08/2017 Immunizations Immunization Administration Dates Next Due DTaP (TRIPEDIA, INFANRIX) [...] 61 09/07/2023 10:59 PM EST Temperature 36.9 C (98.5 F) 09/07/2023 10:59 PM EST Respiratory Rate 17 09/07/2023 10:59 PM EST Oxygen Saturation 98% 09/07/2023 10:59 PM EST Inhaled Oxygen Concentration - - Weight 50.3 kg (111 lb) 08/07/2017 2:31 PM EST Height 162.6 cm (5' 4 ) 01/08/2017 1:48 PM EDT Body Mass Index - - Plan of Treatment Health Maintenance Due Date Last Done Comments HIV SCREENING 2000 HEPATITIS C SCREENING 2018 [...] age to complete this topic Care Teams Cotton Factor Relationship Specialty Start Date End Date Massiel Juarez DO [address] [place] [id number] PCP - General 07/23/16 Additional Source Comments [...] law may result in a fine or prison sentence or both. A general authorization for the release of medical or other informationisNOT sufficient authorization for further disclosure.[facility]
== END 2025-05-04 12:58 | disposition home or self-care (01) ==
PROVIDERS: Visit Provider Physician Assistant
DX: J06.9 Acute upper respiratory infection, unspecified (principal); K59.00 Constipation, unspecified

== ENCOUNTER 2025-07-29 08:56 | Emergency (ER) | payer MEDICAID, SELFPAY ==
[2025-07-29 09:16] VITALS: BP 115/54; PULSE 74; RESP 16; TEMP 36.7; O2SAT 100; BMI 19.3
--- NOTE | 2025-07-29 10:09 | ED.FEMALEGU ---
HPI - Female Genitourinary General Chief complaint: Urogenital-Female Stated complaint: abd pain Time Seen by Provider: 07/29/25 09:27 Source: patient, RN notes reviewed and old records reviewed Mode of arrival: ambulatory History of Present Illness ED Provider: Erica De Leon PA-C HPI Narrative: 25-year-old female with no significant past medical history presenting to the ED complaining of clitoral pain x2 weeks during intercourse. reports mild suprapubic discomfort. Is sexually active with same female partner. Denies any open wounds / lesions, ulcerations, abnormal bleeding, discharge, flank pain, nausea/ vomiting, fever. States she is not concerned for STIs however would like to be tested. Related Data Previous Rx's ?Medication ?Instructions ?Recorded acetaminophen 500 mg tablet 500 mg PO Q6H PRN pain #30 tabs 12/16/24 (Tylenol Extra Strength) ibuprofen 600 mg tablet 600 mg PO Q6H PRN pain #30 tabs 12/16/24 benzonatate 200 mg capsule 200 mg PO BEDTIME PRN cough #10 05/04/25 caps Allergies Allergy/AdvReac Type Severity Reaction Status Date / Time No Known Allergies Allergy Verified 07/29/25 09:19 Review of Systems Review of Systems: Yes all other systems are reviewed and are negative Constitutional: Constitutional: Reports as per [facility] Past Medical History Attestation statement: The following information was validated with the patient. Source: old records reviewed Medical History No pertinent past medical history Social History Social History Patient Tobacco Use Status: Former Tobacco user Advance Directives: No Advance Directives Information Provided: Yes Physical Exam Vital Signs: Vital Signs: Last Vital Signs Temp 98.1 F 07/29/25 09:16 Pulse 74 07/29/25 09:16 Resp 16 07/29/25 09:16 BP 115/54 L 07/29/25 09:16 Pulse Ox 100 07/29/25 09:16 O2 Del Method Room Air 07/29/25 09:16 BMI result Body Mass Index 19.3 Const: General: cooperative, healthy appearing and no acute distress Orientation/consciousness: patient oriented x3 Limitations: no limitations HEENT: Head: Yes normal to inspection and Yes atraumatic Ears: hearing grossly normal bilaterally General nose exam: Normal external nose present Face and sinus: Yes normal facial exam Eyes: General: appearance normal, both eyes and all related structures EOM: EOMs intact bilaterally Neck: Neck: Yes normal visual inspection and Yes no meningeal signs Resp: Effort & Inspection: normal respiratory effort and no respiratory distress Cardio: Rate: regular rate GI: Inspection: Yes normal to inspection Palpation (GI): Soft to palpation, nontender, no guarding and not rigid : Other: patient unable to tolerate speculum exam General: Yes no CVA tenderness External Female Exam: normal external appearance, No erythema, No externally tender, No external swelling, No lesion, No External ecchymosis (female), No urethral discharge and No lesion Back/Spine/Pelvis: Back: no CVA tenderness Skin: Rashes: no rashes Wounds: no wounds Neuro: General: patient oriented x3, tone normal and no meningeal signs Cranial nerves: Yes CN's II-XII intact bilaterally Gait exam (Neuro): Normal gait present Extrem: General: Yes normal to inspection Course Course Course Narrative: - UA and negative > patient unable to tolerate speculum exam. Urine CT/ NG pending. not interested in empiric treatment at this time. Will wait for cultures to result. Recommended close bullion weigher/tapestry follow up for further STI testing/evaluation. Results discussed with patient including worrisome signs and symptoms and strict return precautions, and when to return to the emergency department. They verbalized understanding and feel safe for discharge at this time. Medical Decision Making Medical Decision Making MDM Narrative: 25-year-old female with no significant past medical history presenting to the ED complaining of clitoral pain x2 weeks during intercourse. reports mild suprapubic discomfort. On exam vital signs stable, NAD, nontoxic appearing, abdomen is soft and nontender, on external exam within normal limits. No appreciable lesions /lacerations or open wounds. Patient unable to tolerate speculum exam. concern for STI. Rule out UTI. Low suspicion for appendicitis / diverticulitis, ovarian torsion, PID, or Rashad's gangrene Plan: UA, STI testing. lengthy discussion with patient about recommended bullion weigher follow-up Please refer to course for remaining clinical decision making, interpretation of labs/imaging results, and discussions with consultants and/or family members. Differential Diagnosis Differential Diagnoses: The differential diagnosis associated with the presentation includes As above Lab Data [facility] Lab Attestation statement: I reviewed the patient's lab results. Labs: Lab Results 07/29/25 Range/Units 10:07 Urine Color Yellow Urine Appearance Clear Urine pH 7.5 (5.0-9.0) Ur Specific [place] 1.010 (1.005-1.025) Urine Protein Negative (Neg-Trace) mg/dL Urine Glucose (UA) Negative (Negative) mg/dL Urine Ketones Negative (Negative) mg/dL Urine Blood Negative (Negative) Urine Nitrite Negative (Negative) Ur Leukocyte Esterase Negative (Negative) Urine Test NEGATIVE (NEGATIVE) Radiology Impression Discussion of test interpretation with radiology: I have reviewed the radiologist's reading. External Record Review External record reviewed: Inpatient record, Office record, Outpatient record, Prior outpatient labs, Prior outpatient radiology, Primary care record and Outside ED record Tests considered The following testing was considered but not selected: As above Prescription Management I considered prescription management with: Pain Medication and Antibiotic Chronic Conditions Patient?s care impacted by: Other Social Determinants Patient?s care significantly limited by Social Determinants of Health including: Other Social Determinant of Health Discharge Plan Discharge Clinical Impression: Vaginal pain Patient Disposition: Home, Self-Care Instructions: Pelvic Pain (ED) Additional Instructions: Your urine is not infected. We tested you for gonorrhea and chlamydia. The results currently pending. Refrain from any sexual contact until results are back. You need to establish care with a bullion weigher you may also go to [facility] for further STI testing You were found to have a sexually transmitted infection or concern for sexually transmitted infection on your visit today. You were given medications to treat you in the Emergency Department but if you were given antibiotics to take at home it is important you finish all these medications. Your sexual partners need to be advised they should seek care as well. It is important you abstain from sexual activity while you are on your antibiotics or having active symptoms. We will notify you of any POSITIVE pending results. For further testing including HIV and follow up for your visit you can reach out to your primary care doctor, [facility], or [facility]. [address] [place] [phone] [place] [id number] [phone] Prescriptions: No Action ibuprofen 600 mg tablet 600 mg PO Q6H PRN (Reason: pain) Qty: 30 0RF acetaminophen [Tylenol Extra Strength] 500 mg tablet 500 mg PO Q6H PRN (Reason: pain) Qty: 30 0RF benzonatate 200 mg capsule 200 mg PO BEDTIME PRN (Reason: cough) Qty: 10 0RF Referrals: [facility] [place]] [facility] [Provider Group] Physician,Unknown J [Primary Care Provider, Medical] Print Language: [place]
[2025-07-29 10:18] LABS: Appearance Urine Clear; Glucose Urine UA Negative (Negative); PH 7.5 (5.0-9.0); Specific Gravity - Urine 1.010 (1.005-1.025); UPreg QC Valid YES
--- OUTSIDE RECORDS SUMMARY | 2025-07-29 11:26 | XMS_ITS | Data Portability ---
Author Organization [place] - .[facility], [facility] Address [address] [place] [address] Assessment No assessment recorded. Plan of Treatment Reminders Order Date Submit Date Provider Last Modified By Organization Details Last Modified Time Details Appointments None recorded. Lab rapid strep group A, throat [email or web address] [facility], [address] [place] [address], [id number], 3 13:27:04 influenza virus A + B + SARS-CoV-2 (COVID19) Ag panel, rapid IA, upper respiratory specimen [email or web address] [facility], [address] [place], [address], 3 13:27:04 unlisted lab - STD panel (swab)- d 2022 023 [facility], [address] [place], [address], 3 02:15:08 HIV 1+2 AB + HIV 1 p24 Ag, qualitative immunoassay , serum 2022 023 [facility], [address] [place], [address], 3 02:15:06 herpes simplex virus 2 IgG Ab inhibition, serum or plasma 2022 023 [facility], [address] [place], [address], 3 13:14:09 HIV (1+2) Ab, rapid, unspecified specimen 2022 023 [facility], [address] [place], [address], 3 19:11:54 unlisted lab - STD panel (swab)- [facility] 2022 023 [facility], [address] [place], [address], 3 00:09:09 HIV 1+2 AB + HIV 1 p24 Ag, qualitative immunoassay , serum 2022 023 [facility], [address] [place], [address], 3 02:09:47 herpes simplex virus 2 IgG Ab inhibition, serum or plasma 2022 023 [facility], [address] [place], [address], 3 04:10:29 Referral None recorded. Procedures None recorded. Surgeries None recorded. Imaging None recorded. Medication Orders amoxicillin 875 mg tablet 2022 023 [email or web address] os13 [facility], [address] [place] [address], [address], 3 13:27:04 Florastor 250 mg capsule 2022 023 [email or web address] os13 [facility], [address] [place] [address], [address], 3 13:27:04 ibuprofen 600 mg tablet 2022 023 [email or web address] os13 [facility], [address] [place] [address], [address], 13:27:04 Chlorasepti c Throat [place] 1.4 % aerosol 2022 023 [email or web address] os13 [facility], [address] [place] [address], [address], 3 13:27:04 Patient TargetsNo targets recorded. Patient Instructions Encounter Date Encounter Id Patient Instructions Last Modified By Organization Details Last Modified Time 01/17/2023 [id number] A healthy lifestyle: care instructions [email or web address] Not available 01/17/2023 18:34:29 Thank you for visiting [facility]There are two ways to view your lab results: : 1. The Zimory montrell is available to all patients 18 and older in the Montrell Store and PixelFlow. First-time montrell users will need to create an account; please note you l l need to select a login and password for the montrell versus just using your patient portal login credentials. Your lab results will be posted to the Zimory montrell as soon as they r e available. 2. Via email , as soon as lab results are available. If you don t receive an email within the estimated time frame, give our Aftercare team a call at [phone]. STD TESTING Your visit today was potentially [...] up with your primary care physician (or synthetic soil blocks pulper, if applicable) for ongoing medical treatment. Repeat [...] you may be asked to return to [facility] for a discussion of your results. Please call [facility] Aftercare if you desire a status [...] 9 am to 7 pm on weekends. [email or web address] Not available 01/17/2023 16:11:52 04/15/2023 [id number] A healthy lifestyle: care instructions [email or web address] Not available 04/15/2023 18:57:43 Thank you for visiting [facility]. We may be calling you to [...] also view your lab results using the Zimory montrell, available in the Montrell Store and Google VIPerks. First-time montrell users will need to create an account; please note you l l need to select a login and password for the montrell versus just using your patient portal login. Your lab results will be posted to the Zimory montrell as soon as they r e available. If you have any questions regarding your visit, our Aftercare department can be reached at [phone]. Our hours are Saturday from 8 am [...] up with your primary care physician (or synthetic soil blocks pulper, if applicable) for ongoing medical treatment. Repeat [...] you may be asked to return to [facility] for a discussion of your results. Please call [facility] Aftercare if you desire a status [...] weekends. [email or web address] Not available 04/15/2023 18:47:31 09/04/2023 [id number] A healthy lifestyle: care instructions [email or web address] Not available 09/04/2023 13:27:04 Thank you for visiting [facility]. We may be calling you to review your lab results or schedule a follow up appointment. The call will be through an automated system which asks you to press a cavazos to speak with one of our agents. Please be on the lookout for this call and listen to the message in its entirety. You may also view your lab results using the Zimory montrell, available in the Montrell Store and Google Play. First-time montrell users will need to create an account; please note you l l need to select a login and password for the montrell versus just using your patient portal login. Your lab results will be posted to the Zimory montrell as soon as they r e available. If you have any questions regarding your visit, our Aftercare department can be reached at [phone]. Our hours are Saturday from 8 am [...] fluid ounces of warm water. Take an cipf-dhd-xfnszrw pain medication, such as acetaminophen (Tylenol), ibuprofen (Advil, Motrin), or naproxen (Aleve). Read and follow all instructions on the label. Try an xsvm-vvs-rhmgnor anesthetic throat spray or throat lozenges, which [...] ED not detect ed normal Not Available [facility] [address] [place], [address], 01/18/2023 12:19:03 01/18/2001/19/2023 HEP C ANTIB NATALIYA HCV Ab NON REACTI VE non reacti ve normal Not Available [facility] [address] [place], [address], 01/19/2023 00:09:09 01/18/2001/19/2023 HEP C ANTIB NATALIYA interpretati on: COMMEN T normal Not infec charles with HCV unles s early or acute infec tion is suspe cted (whic h may be delay ed in an immun ocomp romis ed indiv idual ), or other evide nce exist s to indic ate HCV infec tion. Not Available d Lab [address] [place], [address], 01/19/2023 00:09:09 01/18/20 23 01/18/2023 CHLAM YDIA/ GC PCR URINE chlamydia trachomatis, DNA, PCR, urogenital NOT DETECT ED not detect ed normal Not Available [facility] [address] [place], [address], 01/19/2023 00:09:11 01/18/20 23 01/18/2023 CHLAM YDIA/ GC PCR URINE neisseria gonorrhoeae, DNA, PCR, urogenital NOT DETECT ED not detect ed normal Not Available [facility] [address], [place], [address], 01/19/2023 00:09:11 01/18/20 23 01/19/2023 HEP B SURFA CE AG II HBsAg screen NEGATI VE negati ve normal Not Available d Lab [address], [place], [address], 01/19/2023 00:09:12 01/18/20 23 01/19/2023 HIV SCREE N 4TH GENER ATION WRFX HIV Ab/P24 Ag screen NON REACTI VE non reacti ve normal HIV Negat ronnie HIV-1 /HIV- 2 antib odies and HIV-1 p24 antig en were NOT detec charles. There is no labor atory evide nce of HIV infec tion. Not Available d Lab [address] [place], [address], 01/19/2023 02:09:47 01/18/20 23 01/19/2023 HERPE S [...] . Not Available d Lab [address] [place], [address], 01/19/2023 04:10:28 01/18/20 23 01/19/2023 HERPE S [...] guide lines . Not Available d Lab [address] [place], [place] [address] [place], [address], 01/19/2023 04:10:28 01/18/20 23 01/19/2023 SYPHI LIS SCREE N/REF DARRYN TO RPR T pallidum antibodies NON REACTI VE non reacti ve normal Not Available d Lab [address] [place], [address], 01/19/2023 18:09:54 04/15/20 23 04/16/2023 HERPE S SIMPL EX VIRUS 1 AND 2 (IGG) WITH REFLE X TO HSV-2 INHIB ITION hsv-1 IgG antibody index >8.00 ai <0.89 high AI Inter preta tion <0.9 Negat ronnie 0.9 - 1.0 Equiv ocal > or = 1.1 Posit ronnie Not Available [facility] [address] [place], [address], 04/16/2023 13:14:08 04/15/20 23 04/16/2023 HERPE S SIMPL EX VIRUS 1 AND 2 (IGG) WITH REFLE X TO HSV-2 INHIB ITION hsv-2 IgG antibody index <0.20 ai <0.89 normal AI Inter preta tion <0.9 Negat ronnie 0.9 - 1.0 Equiv ocal > or = 1.1 Posit ronnie Not Available [facility] [address] [place], [address], 04/16/2023 13:14:08 04/15/20 23 04/17/2023 HIV SCREE N 4TH GENER ATION WRFX HIV Ab/P24 Ag screen NON REACTI VE non reacti ve normal HIV Negat ronnie HIV-1 /HIV- 2 antib odies and HIV-1 p24 antig en were NOT detec charles. There is no labor atory evide nce of HIV infec tion. Not Available d Lab [address], [place], [address], 04/17/2023 02:15:06 04/15/20 23 04/17/2023 HEP C ANTIB NATALIYA HCV Ab NON REACTI VE non reacti ve normal Not Available [facility] [address], [place], [address], 04/17/2023 02:15:08 04/15/20 23 04/17/2023 HEP C ANTIB NATALIYA interpretati on: COMMEN T normal Not infec charles with HCV unles s early or acute infec tion is suspe cted (whic h may be delay ed in an immun ocomp romis ed indiv idual ), or other evide nce exist s to indic ate HCV infec tion. Not Available [facility] [address], [place], [address], 04/17/2023 02:15:08 04/15/20 23 04/17/2023 CHLAM YDIA/ GC PCR URINE chlamydia trachomatis, DNA, PCR, urogenital NOT DETECT ED not detect ed normal Not Available [facility] [address] [place], [address], 04/17/2023 06:46:06 04/15/20 23 04/17/2023 CHLAM YDIA/ GC PCR URINE neisseria gonorrhoeae, DNA, PCR, urogenital NOT DETECT ED not detect ed normal Not Available [facility] [address] [place], [address], 04/17/2023 06:46:06 04/15/20 23 04/17/2023 TRICH OMONA S PCR URINE trichomonas vaginalis DNA, PCR NOT DETECT ED not detect ed normal Not Available [facility] [address] [place], [address], 04/17/2023 06:46:11 04/15/20 23 04/17/2023 HEP B SURFA CE AG II HBsAg screen NEGATI VE negati ve normal Not Available d Lab [facility] [place], [address], 04/17/2023 06:46:12 04/15/20 23 04/17/2023 SYPHI LIS SCREE N/REF DARRYN TO RPR T pallidum antibodies NON REACTI VE non reacti ve normal Not Available [facility] [place], [address], 04/17/2023 16:13:07 04/15/2004/15/2023 HIV (1+2) Ab, rapid , unspe cifie d speci men Unknown Analyte negati ve Not Available [facility]_ [address], [address], 04/15/2023 18:47:36 12/20/20 23 09/04/2023 rapid strep group A, throa t Group A Strep POSITI VE Not Available [address], [address], 09/04/2023 12:23:19 09/04/20 23 09/04/2023 influ valdez virus A + B + SARS- CoV-2 (COVI D19) Ag panel , rapid IA, upper respi rator y speci men Flu A NEGATI VE Not Available [address], [address], 09/04/2023 12:23:18 09/04/20 23 09/04/2023 influ valdez virus A + B + SARS- CoV-2 (COVI D19) Ag panel , rapid IA, upper respi rator y speci men Flu B NEGATI VE Not Available [address], [address], 09/04/2023 12:23:18 09/04/20 23 09/04/2023 influ valdez virus A + B + SARS- CoV-2 (COVI D19) Ag panel , rapid IA, upper respi rator y speci men Covid-19 NEGATI VE Not Available [address], [address], 09/04/2023 12:23:18 Result Notes None recorded. Problems No Known Problems Procedures Surgical History Date Name Laterality Status Provider Name and Address Organization Details Recorded Time 04/15/20 23 . [facility] 04/15/2023 18:53:11 01/18/20 23 . Venipuncture by Provider completed Juanis [facility] 01/17/2023 16:11:31 Imaging Results None recorded. [...] Not Available Not Avai lable Chloraseptic Throat [place] 1.4 % aerosol Take 2 sprays every [...] Updated DateTime 3 165.1 cm 18.3 kg/m2 43870.1 6 g 98 [degF] 59 /min 16 /min 99 % 99 % 132/83 mm[Hg] Juanis Byers [facility] 3 16:00:32 Date Recorded Body height Heart rate Body temperature Respiratory rate Oxygen saturation Oxygen saturation in Arterial blood by Pulse oximetry Body mass index (BMI) Body weight Systolic And Diastolic Provider Name and Address Organization Details Last Updated DateTime 3 165.1 cm 85 /min 98.2 [degF] 16 /min 100 % 100 % 16.6 kg/m2 07481.2 4 g 134/84 mm[Hg] Maryjane Rao [facility] 3 18:37:24 Date Recorded Body height Body mass index (BMI) Body weight Heart rate Body temperature Respiratory rate Oxygen saturation Oxygen saturation in Arterial blood by Pulse oximetry Systolic And Diastolic Provider Name and Address Organization Details Last Updated DateTime 3 165.1 cm 16.6 kg/m2 86757.2 4 g 79 /min 98.5 [degF] 16 /min 98 % 98 % 130/82 mm[Hg] Yasmin Robins [facility] 3 12:10:35 Social History Question Answer Notes LastModified by Organizat ion Details LastModified Time Tobacco Smoking Status Current Some Day Smoker Juanisanika HannahByersYUDITH villalba - .[facility] 01/17/2023 15:56:21 RISK LEVEL - Segmentation Level 1 - Healthy [id number] Information not available 02/27/2023 What Was The Date Of Your Most Recent Tobacco Screening? 01/17/2023 [email or web address] Information not available 01/17/2023 Has Tobacco Cessation Counseling Been Provided? Yes [email or web address] Information not available 01/17/2023 On What Date Was Tobacco Cessation Counseling Provided? 01/17/2023 [email or web address] Information not available 01/17/2023 Sex: Unknown Functional Status None recorded. Mental Status None recorded. Family History Relationship Description Onset Age of this Age Resolved Age Notes LastModified by Organization Details LastModified Time Father No current problems or disability [email or web address] Not available 16:12:53 Mother No current problems or disability [email or web address] Not available 16:12:53 Medical History No medical history recorded. Gynecological HistoryNo gynecological history recorded. Obstetrics History GPAL:G 0 P 0 0 0 0 Past Encounters Encounter ID Performer Location Encounter Start Date Encounter Closed Date Diagnosis/Indication Diagnosis SNOMED-CT Code Diagnosis ICD10 Code Diagnosis IMO Codes Diagnosis Note [id number] David Simental MD [facility] [address] [place] [address] 01/17/2023 15:35:04 01/17/2023 16:10:25 Venereal disease screening 355336659 Z11.3 Asymptomat ic patient, no concern about std, no notificati on from partner about STD.FU results and repeat panel in 3 months [id number] Michael Fran DO [facility] [address] [place] [address] 04/15/2023 18:26:49 04/15/2023 18:49:53 Venereal disease screening 764851557 Z11.3 [id number] David Simental MD [facility] [address] [place] [address] 09/04/2023 11:42:00 09/04/2023 12:27:18 Streptococcal sore throat 26371516 J02.0 , + rapid strep in office; started on amoxicilli n and advised on appropriat e use and potential side effects; advised to take abx with food and to use a probiotic; advised re-eval in 2-3 days if not improving or sooner if getting worse Exposure t o viral disease 8504827914 33482 Z20.828 symptoms suggestive of viral communicab le illness Health Concerns Section Related Observation LastModified by Organization Detai ls LastModified Time None Recorded Concern Status LastModified by Organization Details LastModified Time None Recorded Advance Directives Directive None Recorded Payers Insurance Date Sequence Insurance Name Policy Number Policy Kelley Covered Member ID Kelley Member ID Guarantor Name 09/04/2023 1 [id number] Haja Barron [id number] Haja Anderson 09/04/2023 1 [facility] (MEDICAID HMO) [id number] Haja Bhandariba [id number] Haja Barron Notes Date Note Type Note [...] w/ HIV and herpes David Simental MD [address] [place] [address],[address], [place], [address], [facility] - .[facility] 01/19/2023 09:25:27 04/15/2023 text/html STD Testing/Counseling/Q [...] requesting rapid HIV testing. YUDITH Mcelroy - .Juliette Zulahoo [facility] 04/17/2023 12:40:57 09/04/2023 text/html COVID-19 VISIT - [...] exposure last week.OTC: acetaminophen David Simental MD [address] [place] [address],[address], [place], [address] [place] - .[facility] 09/04/2023 18:45:55 OBGyn Episode No OBEpisode recorded.
--- OUTSIDE RECORDS SUMMARY | 2025-07-29 11:26 | XMS_ITS | Clinical Summary ---
Author Organization [facility] Address [address] [place] [phone] Phone Care Team Providers Care Organ Teacher Name Role Phone HaileyYannick Massiel Primary Care [...] SCREENING 2000 HEPATITIS C SCREENING 2018 PAP SMEAR/HPV WITH REFLEX 2021 TDAP/TD VACCINE 06/24/2022 06/24/2012, 06/17/2007 COVID VACCINE ( season) 2025 ZOSTER (SHINGRIX) VACCINE (1 of 2) 2050 HEPATITIS B VACCINE Completed 09/28/2009, 10/26/2006, 2000, Additional history exists HUMAN PAPILLOMA VIRUS (HPV) VACCINE Completed 01/05/2010, 09/28/2009, 06/02/2009 PNEUMOCOCCAL VACCINE Aged Out No long er eligible based on patient's age to complete this topic Care Teams Organ Teacher Relationship Specialty Start Date End Date Massiel Juarez DO [address] [place] [address] PCP - General 07/23/16 Additional Source Comments [...] law may result in a fine or long-term sentence or both. A general authorization for the release of medical or other informationisNOT sufficient authorization for further disclosure.[facility]
[2025-07-29 11:45] VITALS: BP 126/53; PULSE 62; RESP 16; TEMP 36.1; O2SAT 100
[2025-07-29 13:13] LABS: CT PCR Urine NOT DETECTED (Not Detect.); NG PCR Urine NOT DETECTED (Not Detect.)
== END 2025-07-29 11:45 | disposition home or self-care (01) ==
PROVIDERS: Physician Assistant; Emergency Provider Emergency Medicine
DX: R10.20 Pelvic and perineal pain unspecified side (principal); Z20.2 Contact with and (suspected) exposure to infections with a predominantly sexual mode of transmission; Z79.899 Other long term (current) drug therapy
CPT/HCPCS: 81003; 81025; 87491; 87591; 99282